=== PATIENT | male | born 1935 | race Caucasian/White ===

== ENCOUNTER 2016-08-16 18:33 | Observation (INO) | payer MEDICARE, BC ==
[~2016-08-16] VITALS: Ht 174 cm; Wt 111.0 kg
[~2016-08-16 18:33] MED LIST: ACET-2890 PO; AMLO10TA62 PO; ASPI-730 PO; CLOP75TA19 PO; FAMO20TA40 PO; FENO135C PO; FISH1CAP2 PO; FLUO-88 PO; GLIM2TAB3 PO; IRBE1TAB43 PO; ISOS30TA46 PO; METF500T4 PO; METO25TA41 PO; NITR12SP5 TL; TRAM50TA4 PO; VIT1CAPS31 PO; [UNRECOGNIZED DRUG - CODE] PO
--- OUTSIDE RECORDS SUMMARY | 2016-08-16 18:38 | XMS REPORT | Referral Summary ---
Author Author [facility] Organization [facility] Address Unknown Phone Unavailable Care Team Providers Care Informatics Developer Name Role Phone No PCP, States Primary Care Physician [phone] Encounter VC Date(s): 08/29/14 - 08/29/14 [facility] [address] [place] [address] SUKUMAR Mohr [id number] Discharge Diagnosis: BPH Discharge Disposition: 01-Home or Self Care Attending Physician: Jose Muller JR, MD Admitting Physician: Jose Muller JR, MD Vital Signs Most recent to 1 oldest [Reference Range]: Peripheral Pulse 65 bpm Rate [60-100 bpm] (08/29/14 2:10 PM) Blood Pressure 142/68 mmHg [90-140/60-90 mmHg] *HI* (08/29/14 2:10 PM) SpO2 95 % (08/29/14 2:10 PM) Problem List Condition Effective Dates Status Health Status Informant IC (interstitial Active cystitis)/history of(Confirmed) Depression/does take Active medicine(Confirmed) History of urethral Active stricture(Confirmed) Hearing Active loss(Confirmed) High Active cholesterol(Confirme d) Kidney Active disease(Confirmed) Kidney Active stones(Confirmed) Myocardial Active infarction(Confirmed ) Obesity(Confirmed) Active patient Leg pain(Confirmed) Active Scrotal Active pain/R/history of(Confirmed) Prostatism(Confirmed Active ) Urge Active incontinence(Confirm ed) Allergies, Adverse Reactions, Alerts Substance Reaction Severity Status Cephalexin Monohydrate Active ciprofloxacin Active Medications amLODIPine 0 Refill(s) Start Date: 02/17/14 Status: Ordered aspirin 0 Refill(s) Start Date: 02/17/14 Status: Ordered clopidogrel 0 Refill(s) Start Date: 02/17/14 Status: Ordered fenofibric acid 0 Refill(s) Start Date: 02/17/14 Status: Ordered Fish Oil 0 Refill(s) Start Date: 02/17/14 Status: Ordered FLUoxetine 0 Refill(s) Start Date: 02/17/14 Status: Ordered garlic 0 Refill(s) Start Date: 02/17/14 Status: Ordered irbesartan 0 Refill(s) Start Date: 02/17/14 Status: Ordered isosorbide mononitrate 0 Refill(s) Start Date: 02/17/14 Status: Ordered Livalo Daily, 0 Refill(s) Start Date: 02/17/14 Status: Ordered metoprolol tartrate suspension 0 Refill(s) Start Date: 02/17/14 Status: Ordered Miscellaneous DME DME Item oxygen, See Instructions, # 1 Each, 0 Refill(s), Supply Start Date: 02/17/14 Status: Ordered nitroglycerin 0 Refill(s) Start Date: 02/17/14 Status: Ordered orphenadrine 0 Refill(s) Start Date: 02/17/14 Status: Ordered Pepcid 0 Refill(s) Start Date: 02/17/14 Status: Ordered Results No data available for this section Immunizations No data available for this section Procedures Procedure Date Related Diagnosis Body Site Excision/mass right thigh1 05/10/09 Cystourethroscopy and urethral calibration 10/09/04 Cystourethroscopy nd urethral calibration 07/31/03 CABG - Coronary artery bypass graft Endarterectomy/Lt Extraction of cataract/left Extraction of cataract/right Fusion/cervical fusion x 3 Hernia repair/RIH with mesh Repairs/Carlo. femoral aneurysm Replacement stent Surgery/bypass2 Surgery/neck3 1path intramuscular mature lipoma 2vascular surgeon in [place] 3Dr. Juan C Social History Social History Type Response Smoking Status Former smoker Assessment and Plan Extracted from: Title: Ambulatory Patient Education Author: Jose Muller JR, MD Date : 08/29/14 Follow Up With: Where: When: Pt States No PCP [address] [place] [address] Business (1) Within 3 to 5 days Comments: Follow Up With: Where: When: Jose Muller [address] [place] [address] Drive; [place] [address] Business (1) In 1 year 08/30/2015 Comments: Extracted from: Title: Office Visit Note Author: Jose Muller JR, MD Date: 08/29/14 Assessment/Plan BPH Patient not taking any prostate medication at present. Recheck in my office in one year. PSA a week before next visit or to come and see me sooner if having troubles with urination. 15 minute face to face visit with 2/3 of the visit devoted to counseling. Ordered: Office Visit Level 3 Est 09435 Prostate Specific Antigen
--- OUTSIDE RECORDS SUMMARY | 2016-08-16 18:38 | XMS REPORT | Referral Summary ---
Author Author [facility] Organization [facility] Address Unknown Phone Unavailable Care Team Providers Care Hospital Personnel Director Name Role Phone No PCP, States Primary Care Physician [phone] Encounter VC Date(s): 08/29/14 - 08/29/14 [facility] [address] [place] [address] SUKUMAR Mohr [id number] Discharge Diagnosis: BPH Discharge Disposition: 01-Home or [...] 1path intramuscular mature lipoma 2vascular surgeon in [place] 3Dr. Juan C Social History Social History Type Response Smoking Status Former smoker Assessment and Plan Extracted from: Title: Ambulatory Patient Education Author: Jose Muller JR, MD Date : 08/29/14 Follow Up With: Where: When: Pt States No PCP [address] [place] [address] Business (1) Within 3 to 5 days Comments: Follow Up With: Where: When: Jose Muller [address] [place] [address] Drive; [place] [address] Business (1) In 1 year [...] counseling. Ordered: Office Visit Level 3 Est 02237 Prostate Specific Antigen
--- OUTSIDE RECORDS SUMMARY | 2016-08-16 18:38 | XMS REPORT | Continuity of Care Document ---
Author Author [facility] Organization [facility] Address Unknown Phone Unavailable Support Name Relationship Address Phone Lolita CROWDER MD Caregiver [address] [place] [id number] Unavailable NADINE GRANT MD Caregiver [address] [place] [address] Unavailable NADINE GRANT MD Caregiver [address] [place] [place] [address] Unavailable DELICIA EUBANKS Next Of Kin [address] [place] [address] Insurance Providers Guarantor Guy Sesay Address [address] [place] [address] Email DENIED/NO TO PT PORTAL Payer Medicare Policy Number [id number] Subscriber's Name Guy Sesay Relationship 18 Self Effective Date 00 Payer [facility] Policy Number [id number] Subscriber's Name Guy Sesay Relationship 18 Self Group Number [id number] Advance Directives Directive Response Recorded Date/Time Ordered Resuscitation Status Full Code 08/20/15 12:09pm Resuscitation Documents on File Yes 08/21/15 6:03am DPOA for Healthcare Only Yes 08/21/15 6:03am Problems Active Problems Medical Problem Onset Date Status Arthropathy of left hip Unknown Acute CAD (coronary artery disease) Unknown Chronic DMII (diabetes mellitus, type 2) Unknown Chronic Degenerative arthritis of hip Unknown Chronic Dementia Unknown Chronic Depression Unknown Chronic Emphysema/COPD Unknown Chronic Encephalopathy acute Unknown GERD (gastroesophageal reflux disease) Unknown Chronic Hyperlipemia Unknown Chronic Hypertension Unknown Chronic Hyponatremia Unknown Resolved KARLEY (obstructive sleep apnea) Unknown Chronic Obesity (BMI 30-39.9) Unknown Chronic Surgical Problem Onset Date Status Hx of CABG Unknown Resolved Medications Current Home Medications Medication Dose Units Route Directions Days Qty Instructions Start Date Acetaminophen (Tylenol) 325 Mg Tablet 650 Mg Oral Four Times Daily 100 Tablet 08/22/15 Amlodipine Besylate (Norvasc) 10 Mg Tablet 10 Mg Oral Bedtime 07/14 Aspirin 325 Mg Tablet 325 Mg Oral Daily 08/11/10 Clopidogrel Bisulfate (Plavix) 75 Mg Tablet 75 Mg Oral Daily 11/14 Enoxaparin Sodium 100 Mg/1 Ml Syringe 1 Dose Sub-Q Daily 3 Famotidine (Pepcid Ac) 20 Mg Tablet 20 Mg Oral Daily 08/11/10 Fenofibric Acid (Choline) (Trilipix) 135 Mg Capsule.dr 135 Mg Oral Bedtime 05/07/12 Fluoxetine Hcl (Prozac) 20 Mg Capsule 20 Mg Oral Daily 08/11/10 Garlic 1,000 Mg Capsule 1,000 Mg Oral Bedtime 05/10/09 Glimepiride 2 Mg Tablet 1 Tab Oral Give With Breakfast BEST TAKEN WITH BREAKFAST. 08/16/15 Irbesartan/Hydrochlorothiazide (Irbesartan-Hctz 300-12.5 Mg Tb) 1 Each Tablet 1 Tab Oral Daily 08/16/15 Isosorbide Mononitrate 30 Mg Tab.sr.24h 30 Mg Oral Twice A Day Metformin Hcl 500 Mg Tablet 2 Tab Oral Twice A Day 08/16/15 Metoprolol Tartrate 25 Mg Tablet 1 Tab Oral Twice A Day 05/10/09 Nitroglycerin (Nitrolingual) [address] [employer] 2 Sprays Transling As Needed 05/10/09 [place]-3 Fatty Acids/Fish Oil (Fish Oil 1,000 Mg Capsule) 1 Each Capsule 1,000 Mg Oral Twice A Day 08/16/15 Polyethylene Glycol 3350 (Healthylax) 17 Gm Powd.pack 17 Gm Oral Daily 30 Packet 08/22/15 Tramadol Hcl (Ultram) 50 Mg Tablet 50-100 Mg Oral Every 6 Hours as needed for Pain 60 Tablet 08/22/15 Vit C/[place] Ac/Lut/Copper/Znox (Preservision Lutein Softgel) 1 Each Capsule 1 Cap Oral Twice A Day 08/16/15 Past Home Medications Medication Directions Ordered Status Acetaminophen (Tylenol) 325 Mg Tablet, 0 Oral As Needed 05/10/09 Discontinued Aspirin (Aspirin Low Dose) 81 Mg Tablet.dr, 81 Mg Oral Daily 05/10/09 Discontinued Beta-Carotene(A) W-C & E/Min (Ocuvite Tablet) 1 Tab Tablet, 1 Tab Oral Daily 05/10/09 Discontinued Fenofibrate Nanocrystallized (Tricor) 145 Mg Tablet, 72.5 Mg Oral Daily 05/10 Discontinued Hydrochlorothiazide 25 Mg Tablet, 25 Mg Oral Daily 05/10/09 Discontinued Hydrocodone Bit/Acetaminophen (Hydrocodone-Apap 5/500 Tablet) 1 Tab Tablet, 1 Tab Oral As Needed 05/10/09 Discontinued Multivitamins (Multivitamin) 1 Tab Tablet, 1 Tab Oral Daily 05/10/09 Discontinued Nitroglycerin 0.4 Mg Tab.subl, 0.4 Mg Sublingual As Needed 05/09/09 Discontinued Olmesartan/Hydrochlorothiazide (Benicar Hct 20-12.5 Mg Tab) 1 Tab Tablet, 1 Tab Oral Daily 08/11/10 Discontinued Omeprazole Magnesium (Prilosec Otc) 20 Mg Tablet.dr, 20 Mg Oral Daily Discontinued Oxycodone Hcl/Acetaminophen (Oxycodone-Acetaminophen 10-325) 1 Each Tablet, 1 Tab Oral Every 8 Hours as needed for Pain 08/16/15 Discontinued Paroxetine Hcl (Paxil) 20 Mg Tablet, 20 Mg Oral Daily 05/10/09 Discontinued Propoxyphene/Acetaminophen (Darvocet-N 100 Tablet) 1 Tab Tablet, 1 Tab Oral As Needed 05/10/09 Discontinued Social History Social History Problem Response Recorded Date/Time Onset Date Status Chewing Tobacco Status No 08/21/2015 6:22am Not Applicable Not Applicable Hx Substance Use No 08/21/2015 6:22am Not Applicable Not Applicable Hx Alcohol Use Y 1 EVERY FEW MONTHS 08/21/2015 7:24am Not Applicable Not Applicable Has the pt used tobacco in the last 12 months No 08/21/2015 6:22am Not Applicable Not Applicable Tobacco Usage none 08/22/2015 11:24am Not Applicable Not Applicable Query Response Start Date Stop Date Smoking Status Former smoker Hospital Discharge Instructions Instructions: Care Instructions: Reason for Hospitalization: HIP REPLACEMENT I was in the hospital because (patient own words): TO HAVE LEFT HIP REPLACEMENT Discharge Diet: ADA Follow Up Appointments: DR GRANT 09-12-15 @ 2:00PM Pending Lab / Results: No Pending Lab Condition at time of discharge: Good Plan of Care Discharge Date 08/24/15 2:19pm Disposition 62 TO [facility] Instructions/Education Provided NM Ortho Postop Instructions Prescriptions See Medication Section Care Plan and Goals See Discharge Instructions Section Functional Status Query Response Date Recorded Mobility Status Ambulatory w/assist August 24, 2015 1:54pm Assistive Devices Standard Walker August 24, 2015 1:54pm Activity Limitations Pain August 24, 2015 1:54pm Feeding Ability Independent August 24, 2015 1:54pm Toileting Ability Independent August 24, 2015 1:54pm Grooming Ability Independent August 24, 2015 1:54pm Dressing Ability Independent August 24, 2015 1:54pm Driving Ability Dependent August 24, 2015 1:54pm Housework Ability Assist August 24, 2015 1:54pm Meal Preparation Ability Assist August 24, 2015 1:54pm Stair Climbing Ability Assist August 24, 2015 1:54pm Ability to complete ADL's impeded by Change in Cognition August 24, 2015 1:54pm Cognitive/Perceptual Impairments Impaired vision Impaired hearing Chronic confusion August 24, 2015 1:54pm Visual Assistive Devices Glasses With patient August 24, 2015 10:18am Hearing Assistive Devices Left hearing aid Right hearing aid With patient August 24, 2015 10:18am Allergies, Adverse Reactions, Alerts Allergen Type Severity Reaction Status Last Updated Tetanus Vaccines & Toxoid Allergy Unknown Active 09/09/12 Iodine Allergy Unknown Active 09/09/12 Cephalexin Allergy Unknown Active 09/09/12 Ciprofloxacin Allergy Unknown Active 09/09/12 Esomeprazole Allergy Unknown Active 08/16/15 Immunizations Query Response on File Recorded Date/Time Hx Influenza Vaccination Y NOVEMBER 2014 08/21/15 6:22am Hx Pneumococcal Vaccination Y 2011? 08/21/15 6:22am Hx Influenza Vaccination Y NOVEMBER 2014 08/21/15 6:22am Hx Tetanus Diptheria N 1 YEAR AGO 09/09/12 3:11pm Influenza Vaccine Hx fall 201408/21/15 2:10pm Vital Signs Acute Vital Signs Vital Response Date/Time Temperature (Fahrenheit) 98.7 deg F (96.8 - 99.1) 08/24/2015 11:48am Temperature (Calculated Celsius) 37.86312 degrees C (36.0 - 37.3) 08/24/2015 11:48am Temperature Source Temporal 08/21/2015 3:10pm Pulse Rate (adult) 84 bpm (60 - 100) 08/24/2015 11:48am Respiratory Rate 15 breaths/min (10 - 20) 08/24/2015 11:48am O2 Sat by Pulse Oximetry 94 % (90 - 100) 08/24/2015 11:48am Oxygen Delivery Method Room Air 08/23/2015 4:51pm Oxygen Delivery Method Room Air 08/24/2015 11:48am Oxygen Flow Rate 1.00 L/min 08/24/2015 10:35am Blood Pressure 131/65 mm Hg 08/24/2015 11:48am Blood Pressure Source Automatic Cuff 08/24/2015 11:48am Height (Feet) 5 feet 08/24/2015 8:50am Height (Inches) 7.00 inches 08/24/2015 8:50am Weight (Kilograms) 112.900 kg 08/24/2015 9:08am Body Mass Index (BMI) 38.2 08/21/2015 6:01am Results Laboratory Results Test Name Result Units Flags Reference Collection Date/Time Result Date/ Time Comments White Blood Count 9.1 T/MM3 4.5-11.0 08/24/2015 4:08/24/2015 4: 44am Red Blood Count 3.48 M/MM3 L 4.50-5.90 08/24/2015 4:08/24/2015 4: 44am Hemoglobin 9.9 GM/DL L 13.5-17.5 08/24/2015 4:08/24/2015 4:44am Hematocrit 31.9 % L 41-53 08/24/2015 4:08/24/2015 4:44am Mean Corpuscular Volume 91.7 UM3 80-100 08/24/2015 4:08/24/2015 4: 44am Mean Corpuscular Hemoglobin 28.4 UUG 26-34 08/24/2015 4:2015 4:44am Mean Corpuscular Hemoglobin Concent 31.0 GM/DL 31-37 08/24/2015 4:08/24/2015 4:44am RDW Standard Deviation 46.5 FL 36.9-50.2 08/24/2015 4:08/24/2015 4 :44am Platelet Count 225 T/MM3 130-400 08/24/2015 4:08/24/2015 4:44am Mean Platelet Volume 10.3 UM3 9.4-12.4 08/24/2015 4:08/24/2015 4: 44am Neutrophils (%) (Auto) 63.9 % 33-66 08/24/2015 4:08/24/2015 4: 44am Lymphocytes (%) (Auto) 20.0 % L 23-45 08/24/2015 4:08/24/2015 4: 44am Monocytes (%) (Auto) 12.9 % H 0-9.0 08/24/2015 4:08/24/2015 4:44am Eosinophils (%) (Auto) 2.7 % 0-4 08/24/2015 4:08/24/2015 4:44am Basophils (%) (Auto) 0.2 % 0-2 08/24/2015 4:08/24/2015 4:44am Immature Granulocyte % (Auto) 0.3 % 0.0-0.5 08/24/2015 4:2015 4:44am Absolute Neutrophils (auto) 5.8 T/MM3 1.8-7.7 08/24/2015 4:2015 4:44am Absolute Lymphocytes (auto) 1.8 T/MM3 1-4.8 08/24/2015 4:2015 4:44am Absolute Monocytes (auto) 1.2 T/MM3 H 0-0.8 08/24/2015 4:2015 4:44am Absolute Eosinophils (auto) 0.3 T/MM3 0-0.5 08/24/2015 4:2015 4:44am Absolute Basophils (auto) 0.0 T/MM3 0-0.2 08/24/2015 4:08/24/2015 4:44am Absolute Immature Granulocyte (auto 0.03 T/MM3 0.00-0.03 08/24/2015 4: 08/24/2015 4:44am Platelet Function P2Y12 React Units 255 PRU 08/21/2015 6:10am 2015 6:54am PRU reference range for non-treated is 194-418. Post Drug Results: Lower PRU levels are associated with antiplatelet effect. PRU results <194 are highly indicative of a P2Y12 inhibitor effect. PRU of >237 corresponds to previously recommended pre-surgical level of <20% inhibition. NOTE: Test not reliable with NSAID use or low platelet counts. Not for use with inherited platelet disorders. Icterus Index < 2 0-7 08/24/2015 4:08/24/2015 4:59am Chemistry Specimen Hemolysis < 15 0-25 08/24/2015 4:08/24/2015 4 :59am 0-25: Specimen Exhibited No Hemolysis. Turbidity < 20 0-20 08/24/2015 4:08/24/2015 4:59am Sodium Level 137 MEQ/L 134-144 08/24/2015 4:08/24/2015 4:59am Potassium Level 4.5 MEQ/L 3.6-5 08/24/2015 4:08/24/2015 4:59am Chloride Level 99 MEQ/L 98-107 08/24/2015 4:08/24/2015 4:59am Carbon Dioxide Level 30 MEQ/L 22-30 08/24/2015 4:08/24/2015 4: 59am Anion Gap 8 MEQ/L 5-15 08/24/2015 4:08/24/2015 4:59am Blood Urea Nitrogen 27.0 MG/DL H 9-08/24/2015 4:08/24/2015 4: 59am Creatinine 1.0 MG/DL 0.8-1.5 08/24/2015 4:08/24/2015 4:59am BUN/Creatinine Ratio 27 RATIO H 6-08/24/2015 4:08/24/2015 4: 59am Glomerular Filtration Rate Calc 72 08/24/2015 4:08/24/2015 4: 59am Glucose Level 104 MG/DL 75-110 08/24/2015 4:08/24/2015 4:59am Calculated Osmolality 269 MOSM/KG 261-280 08/24/2015 4:08/24/2015 4:59am Calcium Level 9.3 MG/DL 8.4-10.2 08/24/2015 4:08/24/2015 4:59am Troponin I < 0.012 ng/ml 0-0.12 08/23/2015 9:25pm 08/23/2015 9:56pm Troponin values with a difference of 55% increase from orginal troponin value represent a true biological DELTA value. (%increase Calc=Orginal Troponin value, divided by subsequent Troponin value, multiplied by 100) Hemoglobin A1c 6.5 % 6.1-7.9 08/23/2015 4:39am 08/23/2015 10:18am < 6.0 NON-DIABETIC RANGE 6.1-7.9 [facility] TARGET RANGE >8.0 ACTION SUGGESTED Glucometer 110 mg/dL 75-110 08/24/2015 2:09pm 08/24/2015 2:15pm Name: GUY SESAY Unit #: [id number] : 1935 Sex: M Admit Date: 08/21/15 Loc / Svc: SRG Discharge Date: DIAGNOSTIC IMAGING REPORT [id number]AS[facility]: AP PELVIS XRAY IN PACU WITH CROSS TABLE ALTERAL OF OPERATIVE HIP PROCEDURE: PELVIS W/1 VIEW LT HIP: Encounter: Initial Comparison: None Findings: Postoperative changes of left total hip replacement are seen. There is expected postoperative subcutaneous gas. No evidence of hardware failure or acute fracture. No retained radiopaque surgical instruments or sponges seen. Existing right total hip prosthesis appears intact. Impression: New left total hip prosthesis without evidence of immediate complication. . Procedures Procedure Status Date Provider(s) Total replacement of left hip joint Completed 08/21/15 NADINE GRANT MD Encounters Encounter Location Arrival/Admit Date Discharge/Depart Date Attending Provider Discharged Inpatient [facility] 08/21/15 5:46am 08/24/15 2:19pm NADINE GRANT MD Registered Recurring [facility] 07/31/15 3:16pm Lolita CROWDER MD
--- OUTSIDE RECORDS SUMMARY | 2016-08-16 18:38 | XMS REPORT | Continuity of Care Document ---
Author Author [facility] Organization [facility] Address Unknown Phone Unavailable Support Name Relationship Address Phone Lolita BOLDEN MD Caregiver [address] [place] [address] Unavailable USMAN CALLAHAN MD Caregiver [address] [place] [address] Unavailable USMAN CALLAHAN MD Caregiver [address] [place] [address] Unavailable DELICIA EUBANKS Next Of Kin [address] [place] [address] Insurance Providers Guarantor Guy Sesay Address [address] [place] [address] Email DENIED/NO TO PT PORTAL Payer Medicare Policy Number [id number] Subscriber's Name Guy Sesay Relationship 18 Self Effective Date 00 Payer [facility] Policy Number [id number] Subscriber's Name Guy Sesay Relationship 18 Self Group Number [id number] Advance Directives Directive Response Recorded Date/Time Ordered Resuscitation Status Full Code 08/24/15 3:03pm Resuscitation Documents on File Yes 08/24/15 3:14pm DPOA for Healthcare Only Y Jailyn, spouse 08/24/15 3:14pm Problems Active Problems Medical Problem Onset Date Status Anemia Unknown Acute Arthropathy of left hip Unknown Acute CAD (coronary artery disease) Unknown Chronic Chronic back pain Unknown Chronic DMII (diabetes mellitus, type 2) Unknown Chronic Degenerative arthritis of hip Unknown Chronic Delirium due to multiple etiologies Unknown Acute Dementia Unknown Chronic Depression Unknown Chronic Emphysema/COPD Unknown Chronic Encephalopathy acute Unknown Acute GERD (gastroesophageal reflux disease) Unknown Chronic Hyperlipemia Unknown Chronic Hypertension Unknown Chronic Hyponatremia Unknown Resolved KARLEY (obstructive sleep apnea) Unknown Chronic Obesity (BMI 30-39.9) Unknown Chronic Physical debility Unknown Acute Surgical Problem Onset Date Status Hx of CABG Unknown Resolved Status post hip hemiarthroplasty Unknown Acute Medications Current Home Medications Medication Dose Units Route Directions Days Qty Instructions Start Date Acetaminophen (Tylenol) 325 Mg Tablet 650 Mg Oral Four Times Daily as needed for Pain 15 Days 120 Tablet 08/29/15 Amlodipine Besylate (Norvasc) 10 Mg Tablet 10 Mg Oral Bedtime 07/14 Aspirin 325 Mg Tablet 325 Mg Oral Daily 08/11/10 Clopidogrel Bisulfate (Plavix) 75 Mg Tablet 75 Mg Oral Daily 11/14 Famotidine (Pepcid Ac) 20 Mg Tablet 20 Mg Oral Daily 08/11/10 Fenofibric Acid (Choline) (Trilipix) 135 Mg Capsule.dr 135 Mg Oral Bedtime 05/07/12 Fluoxetine Hcl (Prozac) 20 Mg Capsule 20 Mg Oral Daily 08/11/10 Garlic 1,000 Mg Capsule 1,000 Mg Oral Bedtime 05/10/09 Glimepiride 2 Mg Tablet 1 Tab Oral Give With Breakfast BEST TAKEN WITH BREAKFAST. 08/16/15 Haloperidol 0.5 Mg Tablet 0.5 Mg Oral Three Times A Day as needed for Agitation 30 Days 90 Tablet 08/29/15 Irbesartan/Hydrochlorothiazide (Irbesartan-Hctz 300-12.5 Mg Tb) 1 Each Tablet 1 Tab Oral Daily 08/16/15 Isosorbide Mononitrate 30 Mg Tab.sr.24h 30 Mg Oral Twice A Day Metformin Hcl 500 Mg Tablet 1 Tab Oral Twice A Day 30 Days 60 Metoprolol Tartrate 25 Mg Tablet 1 Tab Oral Twice A Day 05/10/09 Nitroglycerin (Nitrolingual) 12 Gm [place] 2 Sprays Transling As Needed 05/10/09 [place]-3 Fatty Acids/Fish Oil (Fish Oil 1,000 Mg Capsule) 1 Each Capsule 1,000 Mg Oral Twice A Day 08/16/15 Polyethylene Glycol 3350 (Healthylax) 17 Gm Powd.pack 17 Gm Oral Daily 30 Packet 08/22/15 Tramadol Hcl (Ultram) 50 Mg Tablet 50-100 Mg Oral Every 6 Hours as needed for Pain 60 Tablet 08/29/15 Vit C/[place] Ac/Lut/Copper/Znox (Preservision Lutein Softgel) 1 Each Capsule 1 Cap Oral Twice A Day 08/16/15 Past Home Medications Medication Directions Ordered Status Acetaminophen (Tylenol) 325 Mg Tablet, 650 Mg Oral Four Times Daily 08/22/15 Discontinued Acetaminophen (Tylenol) 325 Mg Tablet, 0 Oral As Needed 05/10/09 Discontinued Aspirin (Aspirin Low Dose) 81 Mg Tablet., 81 Mg Oral Daily 05/10/09 Discontinued Beta-Carotene(A) W-C & E/Min (Ocuvite Tablet) 1 Tab Tablet, 1 Tab Oral Daily 05/10/09 Discontinued Enoxaparin Sodium 100 Mg/1 Ml Syringe, 1 Dose Sub-Q Daily 08/20/15 Discontinued Fenofibrate Nanocrystallized (Tricor) 145 Mg Tablet, 72.5 Mg Oral Daily 05/10 Discontinued Hydrochlorothiazide 25 Mg Tablet, 25 Mg Oral Daily 05/10/09 Discontinued Hydrocodone Bit/Acetaminophen (Hydrocodone-Apap 5/500 Tablet) 1 Tab Tablet, 1 Tab Oral As Needed 05/10/09 Discontinued Metformin Hcl 500 Mg Tablet, 2 Tab Oral Twice A Day 08/16/15 Discontinued Multivitamins (Multivitamin) 1 Tab Tablet, 1 Tab Oral Daily 05/10/09 Discontinued Nitroglycerin 0.4 Mg Tab.subl, 0.4 Mg Sublingual As Needed 05/09/09 Discontinued Olmesartan/Hydrochlorothiazide (Benicar Hct 20-12.5 Mg Tab) 1 Tab Tablet, 1 Tab Oral Daily 08/11/10 Discontinued Omeprazole Magnesium (Prilosec Otc) 20 Mg Tablet., 20 Mg Oral Daily Discontinued Oxycodone Hcl/Acetaminophen (Oxycodone-Acetaminophen 10-325) 1 Each Tablet, 1 Tab Oral Every 8 Hours as needed for Pain 08/16/15 Discontinued Paroxetine Hcl (Paxil) 20 Mg Tablet, 20 Mg Oral Daily 05/10/09 Discontinued Propoxyphene/Acetaminophen (Darvocet-N 100 Tablet) 1 Tab Tablet, 1 Tab Oral As Needed 05/10/09 Discontinued Tramadol Hcl (Ultram) 50 Mg Tablet, 50-100 Mg Oral Every 6 Hours as needed for Pain 08/22/15 Discontinued Social History Social History Problem Response Recorded Date/Time Onset Date Status Hx Substance Use No 08/21/2015 6:22am Not Applicable Not Applicable Hx Alcohol Use Y 1 EVERY FEW MONTHS 08/21/2015 7:24am Not Applicable Not Applicable Has the pt used tobacco in the last 12 months No 08/24/2015 3:21pm Not Applicable Not Applicable Tobacco Usage none 08/25/2015 1:23pm Not Applicable Not Applicable Query Response Start Date Stop Date Smoking Status Former smoker Hospital Discharge Instructions Instructions: Care Instructions: Reason for Hospitalization: left [facility] I was in the hospital because (patient own words): pt. doesn't know - confused Discharge Diet: diabetic diet Discharge Activity: hip precautions given by PT, walker with assistance PT/OT eval and treat (outpatient, see hand written script) Follow Up Appointments: Dr. Rosaura Bolden on 09/06/15 at 10:00 am for Hosp. follow-up. [facility] [address] [place], [place] . Dr. Lay Rodas on 09/12/15 at 2:00 pm for follow-up. [address] [place] . OT/PT on 09/04/15 at 8:20 am. Advanced Physical Theraph[facility] [place] [phone]. Pending Lab / Results: No Pending Lab Wound/Incision Care: Cover bandage while in shower. Call Dr. Rodas's office if bandage gets wet. Notify Physician If: Fever, increased pain, fall or other concerns. Condition at time of discharge: Fair Plan of Care Discharge Date 08/29/15 3:35pm Disposition 01 DISCHARGED HOME, SELF-CARE Instructions/Education Provided DI for Diabetes Type 2 Prescriptions See Medication Section Additional Instructions/Education Follow-up with diabetic education as previously established. Care Plan and Goals See Discharge Instructions Section Functional Status Query Response Date Recorded Mobility Status Ambulatory w/assist August 27, 2015 3:44pm Assistive Devices Front Wheeled Walker August 27, 2015 3:44pm Activity Limitations Pain August 27, 2015 3:44pm Feeding Ability Independent August 27, 2015 3:44pm Toileting Ability Assist August 27, 2015 3:44pm Grooming Ability Assist August 27, 2015 3:44pm Dressing Ability Assist August 27, 2015 3:44pm Driving Ability Dependent August 27, 2015 3:44pm Housework Ability Dependent August 27, 2015 3:44pm Meal Preparation Ability Dependent August 27, 2015 3:44pm Stair Climbing Ability Assist August 27, 2015 3:44pm Ability to complete ADL's impeded by Impaired Mobility Change in Cognition August 27, 2015 3:44pm Cognitive/Perceptual Impairments Impaired vision Impaired hearing Chronic confusion August 27, 2015 3:44pm Visual Assistive Devices Glasses With patient August 27, 2015 3:44pm Hearing Assistive Devices Left hearing aid Right hearing aid With patient August 27, 2015 3:44pm Preferred Method of Learning Demonstration Listening August 27, 2015 3:44pm Allergies, Adverse Reactions, Alerts Allergen Type Severity Reaction Status Last Updated Tetanus Vaccines & Toxoid Allergy Unknown Active 09/09/12 Iodine Allergy Unknown Active 09/09/12 Cephalexin Allergy Unknown Active 09/09/12 Ciprofloxacin Allergy Unknown Active 09/09/12 Esomeprazole Allergy Unknown Active 08/16/15 Immunizations Query Response on File Recorded Date/Time Hx Influenza Vaccination Y NOVEMBER 2014 08/24/15 3:21pm Hx Pneumococcal Vaccination Y 2011? 08/24/15 3:21pm Hx Influenza Vaccination Y NOVEMBER 2014 08/24/15 3:21pm Hx Tetanus Diptheria N 1 YEAR AGO 09/09/12 3:11pm Influenza Vaccine Hx Nov 2014 08/24/15 3:24pm Vital Signs Acute Vital Signs Vital Response Date/Time Temperature (Fahrenheit) 97.6 deg F (96.8 - 99.1) 08/29/2015 6:36am Temperature (Calculated Celsius) 36.52002 degrees C (36.0 - 37.3) 08/29/2015 6:36am Temperature Source Temporal 08/21/2015 3:10pm Pulse Rate (adult) 77 bpm (60 - 100) 08/29/2015 6:36am Respiratory Rate 18 breaths/min (10 - 20) 08/29/2015 6:36am O2 Sat by Pulse Oximetry 95 % (90 - 100) 08/29/2015 6:36am Oxygen Delivery Method Room Air 08/28/2015 8:54pm Oxygen Delivery Method Room Air 08/29/2015 8:00am Oxygen Flow Rate 2.00 L/min 08/28/2015 6:32am Blood Pressure 127/65 mm Hg 08/29/2015 6:36am Blood Pressure Source Automatic Cuff 08/29/2015 6:36am Height (Feet) 5 feet 08/28/2015 4:10pm Height (Inches) 8.50 inches 08/28/2015 4:10pm Weight (Kilograms) 112.000 kg 08/25/2015 3:27am Body Mass Index (BMI) 38.2 08/21/2015 6:01am Results Laboratory Results Test Name Result Units Flags Reference Collection Date/Time Result Date/ Time Comments Platelet Function P2Y12 React Units 255 PRU [...] Not for use with inherited platelet disorders. Troponin I < 0.012 ng/ml 0-0.12 08/23/2015 9:25pm 08/23/2015 9:56pm Troponin values with a difference of 55% increase from orginal troponin value represent a true biological DELTA value. (%increase Calc=Orginal Troponin value, divided by subsequent Troponin value, multiplied by 100) Hemoglobin A1c 6.5 % 6.1-7.9 08/23/2015 4:39am 08/23/2015 10:18am < 6.0 NON-DIABETIC RANGE 6.1-7.9 [facility] TARGET RANGE >8.0 ACTION SUGGESTED White Blood Count 8.1 T/MM3 4.5-11.0 08/25/2015 4:49am 08/25/2015 5: 08am Red Blood Count 3.41 M/MM3 L 4.50-5.90 08/25/2015 4:49am 08/25/2015 5: 08am Hemoglobin 9.7 GM/DL L 13.5-17.5 08/25/2015 4:49am 08/25/2015 5:08am Hematocrit 31.1 % L 41-53 08/25/2015 4:49am 08/25/2015 5:08am Mean Corpuscular Volume 91.2 UM3 80-100 08/25/2015 4:49am 08/25/2015 5: 08am Mean Corpuscular Hemoglobin 28.4 UUG 26-34 08/25/2015 4:49am 2015 5:08am Mean Corpuscular Hemoglobin Concent 31.2 GM/DL 31-37 08/25/2015 4:49am 08/25/2015 5:08am RDW Standard Deviation 46.0 FL 36.9-50.2 08/25/2015 4:4908/25/2015 5 :08am Platelet Count 274 T/MM3 130-400 08/25/2015 4:49am 08/25/2015 5:08am Mean Platelet Volume 10.2 UM3 9.4-12.4 08/25/2015 4:49am 08/25/2015 5: 08am Neutrophils (%) (Auto) 63.5 % 33-66 08/25/2015 4:49am 08/25/2015 5: 08am Lymphocytes (%) (Auto) 18.4 % L 23-45 08/25/2015 4:49am 08/25/2015 5: 08am Monocytes (%) (Auto) 13.4 % H 0-9.0 08/25/2015 4:4908/25/2015 5:08am Eosinophils (%) (Auto) 4.1 % H 0-4 08/25/2015 4:49am 08/25/2015 5:08am Basophils (%) (Auto) 0.2 % 0-2 08/25/2015 4:4908/25/2015 5:08am Immature Granulocyte % (Auto) 0.4 % 0.0-0.5 08/25/2015 4:492015 5:08am Absolute Neutrophils (auto) 5.2 T/MM3 1.8-7.7 08/25/2015 4:49am 2015 5:08am Absolute Lymphocytes (auto) 1.5 T/MM3 1-4.8 08/25/2015 4:49am 2015 5:08am Absolute Monocytes (auto) 1.1 T/MM3 H 0-0.8 08/25/2015 4:492015 5:08am Absolute Eosinophils (auto) 0.3 T/MM3 0-0.5 08/25/2015 4:49am 2015 5:08am Absolute Basophils (auto) 0.0 T/MM3 0-0.2 08/25/2015 4:49am 08/25/2015 5:08am Absolute Immature Granulocyte (auto 0.03 T/MM3 0.00-0.03 08/25/2015 4: 49am 08/25/2015 5:08am Icterus Index < 2 0-7 08/26/2015 7:57am 08/26/2015 8:13am Chemistry Specimen Hemolysis < 15 0-25 08/26/2015 7:57am 08/26/2015 8 :13am 0-25: Specimen Exhibited No Hemolysis. Turbidity < 20 0-20 08/26/2015 7:57am 08/26/2015 8:13am Sodium Level 137 MEQ/L 134-144 08/26/2015 7:57am 08/26/2015 8:13am Potassium Level 4.6 MEQ/L 3.6-5 08/26/2015 7:57am 08/26/2015 8:13am Chloride Level 102 MEQ/L 98-107 08/26/2015 7:57am 08/26/2015 8:13am Carbon Dioxide Level 28 MEQ/L 22-30 08/26/2015 7:57am 08/26/2015 8: 13am Anion Gap 7 MEQ/L 5-15 08/26/2015 7:57am 08/26/2015 8:13am Blood Urea Nitrogen 28.0 MG/DL H 9-08/26/2015 7:57am 08/26/2015 8: 13am Creatinine 0.9 MG/DL 0.8-1.5 08/26/2015 7:57am 08/26/2015 8:13am BUN/Creatinine Ratio 31 RATIO H 6-08/26/2015 7:57am 08/26/2015 8: 13am Glomerular Filtration Rate Calc 81 08/26/2015 7:57am 08/26/2015 8: 13am Glucose Level 86 MG/DL 75-110 08/26/2015 7:57am 08/26/2015 8:13am Calculated Osmolality 269 MOSM/KG 261-280 08/26/2015 7:57am 08/26/2015 8:13am Calcium Level 9.0 MG/DL 8.4-10.2 08/26/2015 7:57am 08/26/2015 8:13am Magnesium Level 2.2 MG/DL 1.6-2.3 08/26/2015 7:57am 08/26/2015 8:13am Glucometer 99 mg/dL 75-110 08/29/2015 1:52pm 08/29/2015 2:50pm Procedures Procedure Status Date Provider(s) TOTAL HIP ARTHROPLASTY Completed 08/21/15 JUANITA,NADINE S MD LUAN,NEREYDA L PA REPLACE L HIP JT W CERAMIC ON POLY, UNCEMENT, OPEN Completed 08/21/15 NADINE RODAS MD Encounters Encounter Location Arrival/Admit Date Discharge/Depart Date Attending Provider Discharged Inpatient [facility] 08/24/15 2:25pm 08/29/15 3:35pm USMAN CALLAHAN MD Discharged Inpatient [facility] 08/21/15 5:46am 08/24/15 2:19pm NADINE RODAS MD Registered Recurring [facility] 07/31/15 3:16pm Lolita BOLDEN MD
--- OUTSIDE RECORDS SUMMARY | 2016-08-16 18:38 | XMS REPORT | Referral Summary ---
Author Author [facility] Organization [facility] Address Unknown Phone Unavailable Care Team Providers Care Can Carrier Name Role Phone No PCP, States Primary Care Physician [phone] Encounter VC Date(s): 08/29/14 - 08/29/14 [facility] [address] [place] [address] SUKUMAR Mohr [id number] Discharge Diagnosis: BPH Discharge [...] 1path intramuscular mature lipoma 2vascular surgeon in [place] 3Dr. Juan C Social History Social History Type Response Smoking Status Former smoker Assessment and Plan Extracted from: Title: Ambulatory Patient Education Author: Jose Muller JR, MD Date : 08/29/14 Follow Up With: Where: When: Pt States No PCP [address] [place] [address] Business (1) Within 3 to 5 days Comments: Follow Up With: Where: When: Jose Muller [address] [place] [address] Drive; [place] [address] Business (1) In 1 year [...] counseling. Ordered: Office Visit Level 3 Est 40124 Prostate Specific Antigen
--- OUTSIDE RECORDS SUMMARY | 2016-08-16 18:38 | XMS REPORT | Referral Summary ---
Author Author [facility] Organization [facility] Address Unknown Phone Unavailable Care Team Providers Care Convention Manager Name Role Phone No PCP, States Primary Care Physician [phone] Encounter VC Date(s): 08/29/14 - 08/29/14 [facility] [address] [place] [address] SUKUMAR Mohr [id number] Discharge Diagnosis: BPH Discharge [...] 1path intramuscular mature lipoma 2vascular surgeon in [place] 3Dr. Juan C Social History Social History Type Response Smoking Status Former smoker Assessment and Plan Extracted from: Title: Ambulatory Patient Education Author: Jose Muller JR, MD Date : 08/29/14 Follow Up With: Where: When: Pt States No PCP [address] [place] [address] Business (1) Within 3 to 5 days Comments: Follow Up With: Where: When: Jose Muller [address] [place] [address] Drive; [place] [address] Business (1) In 1 year [...] counseling. Ordered: Office Visit Level 3 Est [id number] Prostate Specific Antigen
--- OUTSIDE RECORDS SUMMARY | 2016-08-16 18:38 | XMS REPORT | Referral Summary ---
Author Author [facility] Organization [facility] Address Unknown Phone Unavailable Care Team Providers Care Rn Family Name Role Phone No PCP, States Primary Care Physician [phone] Encounter VC Date(s): 08/29/14 - 08/29/14 [facility] [address] [place] [address] SUKUMAR Mohr [id number] Discharge Diagnosis: BPH Discharge Disposition: 01-Home [...] 1path intramuscular mature lipoma 2vascular surgeon in [place] 3Dr. Juan C Social History Social History Type Response Smoking Status Former smoker Assessment and Plan Extracted from: Title: Ambulatory Patient Education Author: Jose Muller JR, MD Date : 08/29/14 Follow Up With: Where: When: Pt States No PCP [address] [place] [address] Business (1) Within 3 to 5 days Comments: Follow Up With: Where: When: Jose Muller [address] [place] [address] Drive; [place] [address] Business (1) In 1 year [...] counseling. Ordered: Office Visit Level 3 Est 91938 Prostate Specific Antigen
--- OUTSIDE RECORDS SUMMARY | 2016-08-16 18:38 | XMS REPORT | Referral Summary ---
Author Author [facility] Organization [facility] Address Unknown Phone Unavailable Care Team Providers Care County Treasurer Name Role Phone No PCP, States Primary Care Physician [phone] Encounter VC Date(s): 08/29/14 - 08/29/14 [facility] [address] [place] [address] SUKUMAR Mohr [id number] Discharge Diagnosis: BPH Discharge Disposition: [...] 1path intramuscular mature lipoma 2vascular surgeon in [place] 3Dr. Juan C Social History Social History Type Response Smoking Status Former smoker Assessment and Plan Extracted from: Title: Ambulatory Patient Education Author: Jose Muller JR, MD Date : 08/29/14 Follow Up With: Where: When: Pt States No PCP [address] [place] [address] Business (1) Within 3 to 5 days Comments: Follow Up With: Where: When: Jose Muller [address] [place] [address] Drive; [place] [address] Business (1) In 1 year [...] counseling. Ordered: Office Visit Level 3 Est 90507 Prostate Specific Antigen
--- OUTSIDE RECORDS SUMMARY | 2016-08-16 18:38 | XMS REPORT | Referral Summary ---
Author Author [facility] Organization [facility] Address Unknown Phone Unavailable Care Team Providers Care Turbine Technician Name Role Phone No PCP, States Primary Care Physician [phone] Encounter VC Date(s): 08/29/14 - 08/29/14 [facility] [address] [place] [address] SUKUMAR Mohr [id number] Discharge Diagnosis: BPH Discharge Disposition: 01-Home or [...] 1path intramuscular mature lipoma 2vascular surgeon in [place] 3Dr. Juan C Social History Social History Type Response Smoking Status Former smoker Assessment and Plan Extracted from: Title: Ambulatory Patient Education Author: Jose Muller JR, MD Date : 08/29/14 Follow Up With: Where: When: Pt States No PCP [address] [place] [address] Business (1) Within 3 to 5 days Comments: Follow Up With: Where: When: Jose Muller [address] [place] [address] Drive; [place] [address] Business (1) In 1 year [...] counseling. Ordered: Office Visit Level 3 Est 37760 Prostate Specific Antigen
--- OUTSIDE RECORDS SUMMARY | 2016-08-16 18:38 | XMS REPORT | Continuity of Care Document ---
Author Author [facility] Organization [facility] Address Unknown Phone Unavailable Allergies Active Description Code Type Severity Reaction Onset Reported/Identified Relationship to Patient Clinical Status Yes Cephalexin Monohydrate Cephalexin Monohydrate Drug Allergy Severe RASH 01/23/2014 Yes ciprofloxacin ciprofloxacin Drug Allergy Severe RASH 01/23/2014 Yes Cephalexin Monohydrate NKMA N/A N/A 02/17/2014 Yes ciprofloxacin NKMA N/A N/A 02/17/2014 Yes Cephalexin Monohydrate Cephalexin Monohydrate Drug Allergy Severe RASH,HIVES 05/28/2015 Yes ciprofloxacin ciprofloxacin Drug Allergy Severe RASH,HIVES 05/28/2015 Yes iodine iodine Drug Allergy Severe RED RASH, SWELLING , DIFFICULT BREATHING 05/28/2015 Yes morphine morphine Drug Allergy Severe CONFUSION 05/28/2015 Medications Problems Procedures Results Encounters ACCT No. Visit Date/Time Discharge Status Pt. Type Provider Facility Loc./Unit Complaint [id number] 09/25/2015 13:13:00 2015 23:59:00 DIS Outpatient Jose Muller [facility] 1 year recheck
--- OUTSIDE RECORDS SUMMARY | 2016-08-16 18:38 | XMS REPORT | Referral Summary ---
Author Author [facility] Organization [facility] Address Unknown Phone Unavailable Care Team Providers Care Library Specialist Name Role Phone No PCP, States Primary Care Physician [phone] Encounter VC Date(s): 08/29/14 - 08/29/14 [facility] [address] [place] [address] SUKUMAR Mohr [id number] Discharge Diagnosis: BPH Discharge Disposition: [...] 1path intramuscular mature lipoma 2vascular surgeon in [place] 3Dr. Juan C Social History Social History Type Response Smoking Status Former smoker Assessment and Plan Extracted from: Title: Ambulatory Patient Education Author: Jose Muller JR, MD Date : 08/29/14 Follow Up With: Where: When: Pt States No PCP [address] [place] [address] Business (1) Within 3 to 5 days Comments: Follow Up With: Where: When: Jose Muller [address] [place] [address] Drive; [place] [address] Business (1) In 1 year [...] counseling. Ordered: Office Visit Level 3 Est [id number] Prostate Specific Antigen
--- OUTSIDE RECORDS SUMMARY | 2016-08-16 18:39 | XMS REPORT | Continuity of Care Document ---
Author Author [facility] Organization [facility] Address Unknown Phone Unavailable Support Name Relationship Address Phone Lolita CROWDER MD Caregiver [address] [place] [address] Unavailable NADINE GRANT MD Caregiver [address] [place] [address] Unavailable HARPAL BOX MD Caregiver [address] [place] [phone] Unavailable DELICIA EUBANKS Next Of Kin [address] [place] [address] Insurance Providers Guarantor Guy Sesay Address [address] [place] [address] Email DENIED/NO TO PT PORTAL Payer Medicare Policy Number [id number] Subscriber's Name Guy Sesay Relationship 18 Self Effective Date 00 Payer [facility] Policy Number [id number] Subscriber's Name Guy Sesay Relationship 18 Self Group Number [id number] Chief Complaint and Reason for Visit Chief Complaint Lower Extremity Pain Reason for Visit [id number] Problems Active Problems Medical Problem Onset Date [...] Date Status Hx of CABG Unknown Resolved S/P total hip arthroplasty Unknown Acute Status post hip hemiarthroplasty Unknown Acute Past Problems Medical Problem Onset Date Hip pain, left Unknown Medications Current Home Medications Medication Dose Units Route Directions Days Qty Instructions Start Date Acetaminophen 650 Mg Tablet.er 650 Mg Oral As Needed as needed for Pain 09/23/15 Amlodipine Besylate (Norvasc) 10 Mg Tablet 10 [...] Oral Bedtime 05/10/09 Glimepiride 2 Mg Tablet 2 Mg Oral Give With Breakfast BEST TAKEN WITH BREAKFAST. 08/16/15 Irbesartan/Hydrochlorothiazide (Irbesartan-Hctz 300-12.5 Mg Tb) 1 Each Tablet 1 Tab Oral Daily 08/16/15 Isosorbide Mononitrate 30 Mg Tab.sr.24h 30 Mg Oral Twice A Day Metformin Hcl 500 Mg Tablet 500 Mg Oral Twice Daily With Meals Take one tablet, by mouth, 2 times a day with Meals. 09/23/15 Metoprolol Tartrate 25 Mg Tablet 25 Mg Oral Twice A Day 05/10/09 Nitroglycerin (Nitrolingual) 12 Gm [place] 2 Sprays Transling As Needed 05/10/09 [place]-3 Fatty Acids/Fish Oil (Fish Oil 1,000 Mg Capsule) 1 Each Capsule 1,000 Mg Oral Twice A Day 08/16/15 Tramadol Hcl 50 Mg Tablet 50-100 Mg Oral Q6h/0300,0900,1500,2100 09/23/15 Vit C/[place] Ac/Lut/Copper/Znox (Preservision Lutein Softgel) 1 [...] Onset Date Status Hx Substance Use No 09/23/2015 6:06pm Not Applicable Not Applicable Hx Alcohol Use Y 1 EVERY FEW MONTHS 09/23/2015 6:06pm Not Applicable Not Applicable Has the pt used tobacco in the last 12 months No 08/24/2015 3:21pm Not Applicable Not Applicable Tobacco Usage none 08/25/2015 1:23pm Not Applicable Not Applicable Query Response Start Date Stop Date Smoking Status Former smoker Hospital Discharge Instructions No hospital discharge instructions. Plan of Care Discharge Date 09/23/15 6:44pm Disposition 01 DISCHARGED HOME, SELF-CARE Condition at Discharge Stable Instructions/Education Provided Help for Hip Pain Prescriptions See Medication Section Referrals Lolita CROWDER MD Address: [address] [place] [id number] Additional Instructions/Education Please use the Tramadol and/or the Percocet as needed for pain. I do encourage you to use the walker at home for assistance with walking while the pain is causing you pain with weight bearing. If this is not improving however then please follow up with your surgeon or primary care provider for reevaluation. Care Plan and Goals Physician Care Plan Problem:Left Hip Pain Goal: Follow up with primary care provider Instructions: Take medications and follow care plan as discussed/written Functional Status No functional status results. Allergies, Adverse Reactions, Alerts Allergen Type Severity [...] 09/09/12 3:11pm Influenza Vaccine Hx Nov 2014 09/23/15 6:06pm Tdap Vaccine Hx NO SKIN DISRUPTIONS 09/23/15 5:27pm Vital Signs Acute Vital Signs Vital Response Date/Time Temperature (Fahrenheit) 97.3 deg F (96.8 - 99.1) 09/23/2015 5:27pm Temperature (Calculated Celsius) 36.08553 degrees C (36.0 - 37.3) 09/23/2015 5:27pm Temperature Source Temporal 08/21/2015 3:10pm Pulse Rate (adult) 68 bpm (60 - 100) 09/23/2015 6:44pm Respiratory Rate 18 breaths/min (10 - 20) 09/23/2015 6:44pm O2 Sat by Pulse Oximetry 94 % (90 - 100) 09/23/2015 6:44pm Oxygen Delivery Method Room Air 08/28/2015 8:54pm Oxygen Delivery Method Room Air 08/29/2015 8:00am Oxygen Flow Rate 2.00 L/min 08/28/2015 6:32am Blood Pressure 133/66 mm Hg 09/23/2015 6:44pm Blood Pressure Source Automatic Cuff 08/29/2015 6:36am Height (Feet) 5 feet 09/23/2015 5:27pm Height (Inches) 8.50 inches 09/23/2015 5:27pm Weight (Kilograms) 106.200 kg 09/23/2015 5:27pm Body Mass Index (BMI) 35.0 09/23/2015 5:27pm Results Laboratory Results Test Name Result Units [...] 08/23/2015 10:18am < 6.0 NON-DIABETIC RANGE 6.1-7.9 [facility] TARGET RANGE >8.0 ACTION SUGGESTED [...] Corpuscular Hemoglobin Concent 31.2 GM/DL 31-37 08/25/2015 4:4908/25/2015 5:08am RDW Standard Deviation 46.0 FL 36.9-50.2 08/25/2015 4:49am 08/25/2015 5 :08am Platelet Count 274 T/MM3 130-400 08/25/2015 4:49am 08/25/2015 5:08am Mean Platelet Volume 10.2 UM3 9.4-12.4 08/25/2015 4:49am 08/25/2015 5: 08am Neutrophils (%) (Auto) 63.5 % 33-66 08/25/2015 4:4908/25/2015 5: 08am Lymphocytes (%) (Auto) 18.4 % L 23-45 08/25/2015 4:4908/25/2015 5: 08am Monocytes (%) (Auto) 13.4 % H 0-9.0 08/25/2015 4:49am 08/25/2015 5:08am Eosinophils (%) (Auto) 4.1 % H 0-4 08/25/2015 4:4908/25/2015 5:08am Basophils (%) (Auto) 0.2 % 0-2 08/25/2015 4:4908/25/2015 5:08am Immature Granulocyte % (Auto) 0.4 % 0.0-0.5 08/25/2015 4:492015 5:08am Absolute Neutrophils (auto) 5.2 T/MM3 1.8-7.7 08/25/2015 4:492015 5:08am Absolute Lymphocytes (auto) 1.5 T/MM3 1-4.8 08/25/2015 4:492015 5:08am Absolute Monocytes (auto) 1.1 T/MM3 H 0-0.8 08/25/2015 4:49am 2015 5:08am Absolute Eosinophils (auto) 0.3 T/MM3 0-0.5 [...] Date Provider(s) TOTAL HIP ARTHROPLASTY Completed 08/21/15 NADINE GRANT MD, REX L PA REPLACE L HIP JT W CERAMIC ON POLY, UNCEMENT, OPEN Completed 08/21/15 NADINE GRANT MD GAIT TRAINING THERAPY Completed 08/24/15 USMAN CALLAHAN MD PT EVALUATION Completed 08/24/15 USMAN CALLAHAN MD THERAPEUTIC EXERCISES Completed 08/24/15 USMAN CALLAHAN MD OT EVALUATION Completed 08/24/15 USMAN CALLAHAN MD GAIT TRAINING/AMBULAT TREATMENT USING ASSIST EQUIPMENT Completed 08/24/15 USMAN CALLAHAN MD THERAPEUTIC EXERCISE TREATMENT OF MUSCULOSK WHOLE Completed 08/24/15 USMAN CALLAHAN MD HOME MANAGEMENT TREATMENT Completed 08/24/15 USMAN CALLAHAN MD Encounters Encounter Location Arrival/Admit Date Discharge/Depart Date Attending Provider Departed Emergency Room [facility] 09/23/15 5:24pm 09/23/15 6: 44pm HARPAL BOX MD Discharged Inpatient [facility] 08/24/15 2:25pm 08/29/15 3:35pm USMAN CALLAHAN MD Discharged Inpatient [facility] 08/21/15 5:46am 08/24/15 2:19pm NADINE GRANT MD Discharged Recurring [facility] 07/31/15 3:16pm 09/17/15 11:59pm Lolita CROWDER MD Recent Diagnosis
--- OUTSIDE RECORDS SUMMARY | 2016-08-16 18:39 | XMS REPORT | Continuity of Care Document ---
Author Author [facility] Organization [facility] Address Unknown Phone Unavailable Support Name Relationship Address Phone Lolita BOLDEN MD Caregiver [address] [address] Unavailable USMAN CALLAHAN MD Caregiver [address] [place] [address] Unavailable USMAN CALLAHAN MD Caregiver [address] [place] [address] Unavailable DELICIA EUBANKS Next Of Kin [address] [place] [address] Insurance Providers Guarantor Guy Sesay Address [address] [place] [address] Email DENIED/NO TO PT PORTAL Payer Medicare Policy Number [id number] Subscriber's Name Guy Sesay Relationship 18 Self Effective Date 00 Payer [facility] Policy Number [id number] Subscriber's Name Guy Sesay Relationship 18 Self Group Number [id number] Advance Directives Directive Response Recorded Date/Time Ordered [...] Acute Status post hip hemiarthroplasty Unknown Acute Medications [...] A Day 05/10/09 Nitroglycerin (Nitrolingual) 12 Gm [place] 2 Sprays Transling As Needed 05/10/09 [place]-3 Fatty Acids/Fish Oil (Fish Oil 1,000 Mg [...] 09/06/15 at 10:00 am for Hosp. follow-up. [facility] [address] [place], [place] . Dr. Lay Rodas on 09/12/15 at 2:00 pm for follow-up. [address] [place] . OT/PT on 09/04/15 at 8:20 am. Advanced Physical Theraphy [facility] [facility] [address] [place] [phone]. Pending Lab / Results: No Pending Lab [...] 2014 08/24/15 3:21pm Hx Pneumococcal Vaccination Y 08/24/15 3:21pm Hx Influenza Vaccination Y NOVEMBER 2014 08/24/15 3:21pm Hx Tetanus Diptheria N 1 YEAR AGO 09/09/12 3:11pm Influenza Vaccine Hx Nov 2014 08/24/15 3:24pm Vital Signs Acute Vital Signs Vital Response Date/Time Temperature (Fahrenheit) 97.6 deg F (96.8 - 99.1) 08/29/2015 6:36am Temperature (Calculated Celsius) 36.16227 degrees C (36.0 - 37.3) 08/29/2015 6:36am [...] 08/23/2015 10:18am < 6.0 NON-DIABETIC RANGE 6.1-7.9 [facility] TARGET RANGE >8.0 ACTION SUGGESTED [...] 99 mg/dL 75-110 08/29/2015 1:52pm 08/29/2015 2:50pm Name: GUY SESAY Unit #: [id number] : 1935 [id number] SUMMARY Admit Date: 08/24/15 Report #: [id number] [facility] General Date Date DATE: 08/29/15 TIME: 21:[address] Usman Callahan MD Admitting Physician Dr. Usman Callahan MD Consulting Physician MD Dr. Lolita Blackburn MD Dr. Tara Richardson, MD Admitting Diagnosis Metabolic encephalopathy s/p Left total hip arthroplasty Dementia Diabetes Mellitus Type 2 (NIDDM) COPD KARLEY obesity HTN CAD GERD Depression Post-operative anemia secondary to blood loss Discharge Diagnosis Metabolic encephalopathy s/p Left total hip arthroplasty Dementia Diabetes Mellitus Type 2 (NIDDM) COPD KARLEY obesity HTN CAD GERD Depression Post-operative anemia secondary to blood loss Laboratory Hemoglobin 9.7 Laboratory Tests Test 08/29/15 06:15 08/29/15 10:10 08/29/15 13:52 Glucometer 88mg/dL 203mg/dL 99mg/dL History of Present Illness Mr Sesay is an 80 year old gentleman who underwent an elective left total hip arthroplasty by Dr. Rodas on 08-21-15 at [facility]. Typically patient has some underlying mild dementia as per his , however it has never been formally diagnosed. At home prior to this hospitalization, patient typically does not know the date or day of the week. He has been driving prior to this hospitalization. Mr. Sesay has been suffering from increased confusion/delirium following this recent surgery. has been staying with him at night following surgery, which seems to promote calmness. She did not stay last evening. Patient reportedly suffered some agitation requiring PRN agents. Medically, patient has a strong history of coronary artery disease with prior bypass grafting and multiple stents. Cardiology care is done at [facility]. Past history of COPD and sleep apnea with pulmonary cares done by Dr Coreas in [place]. He wears o2 at 2 liters at night due to intolerance to cpap mask. Patient does not routinely use nebulized treatments at home. Approximately one month ago, patient was diagnosed with Type 2 diabetes when he went for preop clearance with Dr Bolden. Surgery was rescheduled at that time. Patient was started on Amaryl and Glucophage which have been restarted postoperatively. Hospital Course Patient was admitted to IRU s/p elective left total hip arthroplasty. He had metabolic encephalopathy and severe agitation that had to be controlled with Haldol IM. This confusion gradually lessened while in IRU, but baseline dementia was apparent with prolonged history of symptoms (per .) He did have several episodes of confusion at night during his stay. Psychiatry did evaluate patient and recommended scheduled Haldol while in the hospital. Prozac was discontinued because of interference with pain medication. Patient did very well with rehab while here, although it was challenging for him to remember hip precautions. Prior to discharge, patient was medically stable. While here he was started on metformin 1000 mg po BID, but states that his home dose was 500 mg po BID and that Dr. Bolden specifically wanted it at this level. I did change it back to 500 mg po BID for discharge, after conversation with Mrs. Sesay, but he did not have any hypoglycemia while admitted and did occasionally require 1-2 units of sliding scale novolog. states patient has tolerated prozac fine for years without complication and while he was on beta-rod. Per her request, I did restart this medication prior to discharge as well as patient was no longer receiving narcotic medication. I discussed haldol use with patient and prior to discharge. feels he will be back to his baseline once home, but did want a prescription for Haldol in case this was needed. It was written for prn only. Because patient is on plavix and asa as outpatient, ortho did not recommend 30 days of lovenox post-operatively so this is how patient was treated upon admission to IRU. Several days prior to his discharge, a [facility] hospitalist changed this order and recommended lovenox for 30 days. I did discuss this thoroughly with Dr. Rodas and lovenox is not indicated since patient does not have history of DVT/PE or cancer. Patient's did not want him to go home on lovenox for several reasons. Dr. Rodas did see patient and prior to discharge and he made a decision that continuing plavix and aspirin is adequate for discharge so these changes w ere made for discharge medication list. There was great concern for patient's inability to follow hip precautions while he was here (due to dementia.) We did recommend SNU to have greater supervision with ambulation and better assistance at night time, but refused this placement. We then recommended home health, but also refused this service. She was willing to take patient to outpatient PT/OT, so order for this was written. I did share this concern with Dr. Rodas due to risk of dislocation or fracture, but was adamant about discharge plans for outpatient PT/OT only. On day of discharge, patient had normal physical exam and bandage was still in place over left hip incision. I did discuss discharge medications and hip precautions again with patient and his at discharge and all questions were answered. They will f/u as outpatient with Dr. Rodas and Dr. Bolden. A formal screen for dementia would be recommended. Dr. Bolden will consider any needed changes to Prozac or metformin. Diabetic education was set-up, as well, for outpatient ( given new diagnosis of DM.) Would recommend f/u hemoglobin to monitor anemia. states they have a few percocet at home, but I recommended to not take this since he was given rx for tramadol and haldol prn. Patient and his were extremely pleasant throughout this stay and I thank Dr. Bolden for allowing us to participate in their care. Problems: (1) Physical debility Status: Acute (2) Delirium due to multiple etiologies Status: Acute (3) DMII (diabetes mellitus, type 2) Status: Chronic (4) Emphysema/COPD Status: Chronic (5) Dementia Status: Chronic (6) KARLEY (obstructive sleep apnea) Status: Chronic (7) Obesity (BMI 30-39.9) Status: Chronic (8) Hypertension Status: Chronic (9) GERD (gastroesophageal reflux disease) Status: Chronic (10) Degenerative arthritis of hip Status: Chronic (11) Depression Status: Chronic (12) CAD (coronary artery disease) Status: Chronic (13) S/P total hip arthroplasty Status: Acute Code Status Full Code Home Meds Active Scripts Tramadol HCl (Ultram) 50 Mg Tablet, 50-100 MG PO Q6H Y for PAIN, #60 TAB 0 Refills Prov:USMAN CALLAHAN MD 08/29/15 Haloperidol (Haloperidol) 0.5 Mg Tablet, 0.5 MG PO TID Y for AGITATION for 30 Days, #90 TAB 0 Refills Prov:USMAN CALLAHAN MD 08/29/15 Acetaminophen (Tylenol) 325 Mg Tablet, 650 MG PO QID Y for PAIN MDD 8 tablets for 15 Days, #120 TAB Prov:USMAN CALLAHAN MD 08/29/15 Metformin HCl (Metformin HCl) 500 Mg Tablet, 1 TAB PO BID for 30 Days, #60 0 Refills Prov:USMAN CALLAHAN MD 08/29/15 Polyethylene Glycol 3350 (Healthylax) 17 Gm Powd.pack, 17 GM PO DAILY, #30 PACKET Prov:MARTIN FOURNIER 08/22/15 Reported Medications Glimepiride (Glimepiride) 2 Mg Tablet, 1 TAB PO WB, TAB BEST TAKEN WITH BREAKFAST. 08/16/15 Vit C/[place] AC/Lut/Copper/Znox (Preservision Lutein Softgel) 1 Each Capsule, 1 CAP PO BID 08/16/15 [place]-3 Fatty Acids/Fish Oil (Fish Oil 1,000 mg Capsule) 1 Each Capsule, 1000 MG PO BID, CAP 08/16/15 Irbesartan/Hydrochlorothiazide (Irbesartan-Hctz 300-12.5 mg Tb) 1 Each Tablet, 1 TAB PO DAILY 08/16/15 Fenofibric Acid (Choline) (Trilipix) 135 Mg Capsule.dr, 135 MG PO HS 05/07/12 Famotidine (Pepcid Ac) 20 Mg Tablet, 20 MG PO DAILY 08/11/10 Fluoxetine (Prozac) 20 Mg Capsule, 20 MG PO DAILY 08/11/10 Clopidogrel Bisulfate (Plavix) 75 Mg Tablet, 75 MG PO DAILY 08/11/10 Aspirin (Aspirin) 325 Mg Tablet, 325 MG PO DAILY 08/11/10 Nitroglycerin (Nitrolingual) 12 Gm [place], 2 SPRAYS TL PRN, 0 Refills 05/10/09 Garlic (Garlic) 1,000 Mg Capsule, 1000 MG PO HS, 0 Refills 05/10/09 Amlodipine (Norvasc) 10 Mg Tablet, 10 MG PO HS, 0 Refills 05/10/09 Metoprolol Tartrate (Metoprolol Tartrate) 25 Mg Tablet, 1 TAB PO BID, 0 Refills 05/10/09 Isosorbide Mononitrate (Isosorbide Mononitrate) 30 Mg Tab.sr.24h, 30 MG PO BID, 0 Refills 05/10/09 Discontinued Reported Medications Enoxaparin Sodium (Enoxaparin Sodium) 100 Mg/1 Ml Syringe, 1 DOSE SQ DAILY, #3 08/20/15 Oxycodone HCl/Acetaminophen (Oxycodone-Acetaminophen 10-325) 1 Each Tablet, 1 TAB PO Q8H Y for PAIN 08/16/15 Acetaminophen (Tylenol) 325 Mg Tablet, 0 PO PRN, 0 Refills 05/10/09 Discharge Disposition home with Copies To 1: Lolita BOLDEN MD Documentation Requirements Documenting Diagnosis Anemia, BMI Low or High, Confusion, Diabetes Anemia Anemia Etiology: Postoperative Anemia Acuity: Unable to Determine Alt. Mental Status/Confusion Check if condition above is: Acute Comments acute on chronic BMI Low or High Assoc. dx for low or high BMI: Severe Obesity 35-39.9 Diabetes Diabetes Type: Type 2 Diabetes Is Diabetes Contolled?: Contolled Related to Diabetes: Not related to USMAN CALLAHAN MD August 29, 2015 21:29 Procedures Procedure Status Date Provider(s) TOTAL HIP ARTHROPLASTY Completed 08/21/15 NADINE RODAS MD, REX L PR REPLACE L HIP JT W CERAMIC ON POLY, UNCEMENT, OPEN Completed 08/21/15 NADINE RODAS MD GAIT TRAINING THERAPY Completed 08/24/15 USMAN [...] Date Discharge/Depart Date Attending Provider Discharged Inpatient [facility] 08/24/15 2:25pm 08/29/15 3:35pm USMAN CALLAHAN MD Discharged Inpatient [facility] 08/21/15 5:46am 08/24/15 2:19pm NADINE RODAS MD Discharged Recurring [facility] 07/31/15 3:16pm 09/17/15 11:59pm Lolita BOLDEN MD
--- OUTSIDE RECORDS SUMMARY | 2016-08-16 18:39 | XMS REPORT | Referral Summary ---
Author Author [facility] Organization [facility] Address Unknown Phone Unavailable Care Team Providers Care Certified Nurses Aide Name Role Phone No PCP, States Primary Care Physician [phone] Encounter VC Date(s): 08/29/14 - 08/29/14 [facility] [address] [place] [address] SUKUMAR Mohr [address] Discharge Diagnosis: BPH Discharge Disposition: [...] 1path intramuscular mature lipoma 2vascular surgeon in [place] 3Dr. Juan C Social History Social History Type Response Smoking Status Former smoker Assessment and Plan Extracted from: Title: Ambulatory Patient Education Author: Jose Muller JR, MD Date : 08/29/14 Follow Up With: Where: When: Pt States No PCP [address] [place] [address] Business (1) Within 3 to 5 days Comments: Follow Up With: Where: When: Jose Muller [address] [place] [address] Drive; [place] [address] Business (1) In 1 year [...] counseling. Ordered: Office Visit Level 3 Est 03508 Prostate Specific Antigen
--- OUTSIDE RECORDS SUMMARY | 2016-08-16 18:41 | XMS REPORT | Continuity of Care Document ---
Author Author [facility] Organization [facility] Address Unknown Phone Unavailable Allergies Active [...] Status Pt. Type Provider Facility Loc./Unit Complaint [id number] 09/25/2015 13:13:00 2015 23:59:00 DIS Outpatient Jose Muller [facility] 1 year recheck
[2016-08-16] MEDS ORDERED: ASPIRIN 81 MG CHEWABLE TABLET PO ONE (18:45)
[2016-08-16] MEDS ORDERED: NITROGLYCERIN 0.4 MG SUBLINGUAL TABLET SL PRN ×3 (18:45→20:30)
[2016-08-16 18:59] LABS: BASOPHILS % (AUTO) 0.3 % (0-2); EOSINOPHILS # (AUTO) 0.3 T/MM3 (0-0.5); EOSINOPHILS % (AUTO) 3.4 % (0-4); HCT - HEMATOCRIT 39.9 % (41-53); HGB - HEMOGLOBIN 12.5 GM/DL (13.5-17.5); IMMATURE GRANULOCYTE # (AUTO) 0.03 T/MM3 (0.00-0.03); IMMATURE GRANULOCYTE % (AUTO) 0.4 % (0.0-0.5); LYMPHOCYTES # (AUTO) 2.1 T/MM3 (1-4.8); LYMPHOCYTES % (AUTO) 28.1 % (23-45); MEAN CORPUSCULAR HGB CONC(MCHC 31.3 GM/DL (31-37); MEAN CORPUSCULAR VOLUME 89.3 UM3 (80-100); MEAN PLATELET VOLUME 10.6 UM3 (9.4-12.4); MONOCYTES # (AUTO) 0.6 T/MM3 (0-0.8); MONOCYTES % (AUTO) 8.3 % (0-9.0); NEUTROPHILS #(AUTO)-ABSOLUTE 4.4 T/MM3 (1.8-7.7); NEUTROPHILS % (AUTO) 59.5 % (33-66); RED BLOOD COUNT 4.47 M/MM3 (4.50-5.90); WBC - WHITE BLOOD COUNT 7.3 T/MM3 (4.5-11.0)
--- NOTE | 2016-08-16 19:05 | NUR ---
STATUS PT REPORTS THE NITRO TAB TOOK THE FULLNESS FEELING AWAY STATES HE JUST FEELS A LITTLE "SOMETHING" NOW, RATES PAIN 1-2 NITRO PASTE APPLIED AFTER EXPLAINING MED TO PT
[2016-08-16 19:06] LABS: INR 1.08 (0.76-1.04); PROTHROMBIN TIME 11.8 SEC (9.31-12.49)
[2016-08-16 19:08] LABS: ALBUMIN 4.5 G/DL (3.5-5.0); ALBUMIN/GLOBULIN RATIO 1.7 RATIO (1.1-2.2); ALKALINE PHOSPHATASE 77 U/L (38-126); ALT (SGPT) 47 U/L (21-72); ANION GAP 15 MEQ/L (5-15); AST (SGOT) 31 U/L (17-59); BUN/CREATININE RATIO 27 RATIO (6-26); CALCIUM 9.2 MG/DL (8.4-10.2); CHLORIDE 99 MEQ/L (98-107); CO2 - CARBON DIOXIDE 26 MEQ/L (22-30); CREATININE 0.9 MG/DL (0.8-1.5); GLOMERULAR FILTRATION RATE 81; GLUCOSE 150 MG/DL (75-110); POTASSIUM 4.4 MEQ/L (3.6-5); SODIUM 140 MEQ/L (134-144); TOTAL PROTEIN 7.1 G/DL (6.3-8.2)
[2016-08-16] MEDS ORDERED: NITROGLYCERIN 2% OINTMENT 1 G PACKET TOP ONE (19:15)
[2016-08-16 19:19] LABS: PROBNP 203 PG/ML (0-175)
--- NOTE | 2016-08-16 19:55 | NUR ---
DR IRBY IN ROOM WITH PT
--- NOTE | 2016-08-16 20:08 | ERPDOC ---
Departure Disposition Decision Date: August 16, 2016 Disposition Decision Time: 20:18 Disposition: 02 TO [facility] Impression Impression Impression: Primary Impression: Chest pain Chest pain type: other chest pain Qualified Codes: R07.89 - Other chest pain Severity: Severe Condition: Improved Seen By: Physician only Referrals: Lolita BOLDEN MD (Family) Problems/Meds/Labs Reviewed?: Yes Medications reviewed and manag: Yes Follow up care ordered?: Yes Mental Status: Alert, Oriented Critical Care Note Total Time (mins): 45 HPI - Chest Pain General Chief Complaint: Chest Pain Stated Complaint: POSS STROKE Time Seen by Provider: 18:37 Source: patient, family Exam Limitations: dementia HPI - Chest Pain Initial Comments Patient and his were eating at a local hamburger place tonight, and on the ride home patient began feeling ill with severe substernal chest tightness and a burning sensation radiating both to the left and right side of chest. With this patient had tingling and numbness down both arms right greater than left, and he states that these are the exact symptoms he had several times in the past with heart attacks. A shunt took 2 of his own nitroglycerin sprays in route, and had reduction of his symptoms by approximately 50%. Patient does have a long history of coronary disease with MS, multiple stents, and CABG. Patient does not remember the last time. 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 Carl out of [place] with the [employer], and his primary physician is Dr. Bolden in [place] Aspirin Treatment Today: 325 mg x 1 Allergies: Coded Allergies: Tetanus Vaccines and Toxoid (Verified Allergy, Unknown, 08/16/16) cephalexin (Verified Allergy, Unknown, 08/16/16) ciprofloxacin (Verified Allergy, Unknown, 08/16/16) esomeprazole (Verified Allergy, Unknown, 08/16/16) PER H&P 07/11/15 iodine (Verified Allergy, Unknown, 08/16/16) Past History Patient Surgical History Right total hip replacement09/2010 Heart [id number] Bilateral carpal tunnel release. Upper rib removal CABG with stent placement07/2009 Right inguinal hernia repair 2 TURP Carotid endarterectomy (left) Heart catheter with single stent05/2013 Past Medical History Metabolic: diabetes, hypercholesterolemia, hypertension ENMT: sleep apnea Cardiac: CAD, MS, angina Respiratory: COPD GI: GERD, ulcers Musculoskeletal: osteoarthritis Hematologic: anemia Psychological: dementia, depression Family History Family PMH: FOUND: CAD, CVA, cancer Vaccines Hx Influenza Vaccination: Yes (NOVEMBER 2014) Hx Pneumococcal Vaccination: Yes (2011?) Hx Tetanus Diptheria: No (1 YEAR AGO) Social History Does patient use chewing tobac: No # of Packs/Tins per Day: 2 # of Years: 30 Sexuality: female partner Review of Systems Constitutional Constitutional: DENIES: appetite decrease, appetite increase, chills, dizziness , fever, weakness ENMT Ears: DENIES: pain Hearing: DENIES: hearing loss, tinnitus Balance: DENIES: vertigo Mouth/Throat: DENIES: change in swallowing, change in voice, hoarsness, painful swallowing, sore throat Cardiovascular Cardiac: chest pain, DENIES: dyspnea on exertion Rhythm/Rate: DENIES: irregular beat, palpitations, tachycardia Vascular: DENIES: pedal edema Pulmonary Respiratory: DENIES: cough, dyspnea, pleuritic chest pain GI Upper Abdomen: DENIES: dysphagia, heartburn/indigestion, nausea, pain, vomiting Lower Abdomen: DENIES: blood in stool, constipation, diarrhea, pain General: DENIES: burning, dysuria, frequency, pain, urgency Musculoskeletal General: DENIES: cramps, joint pain, joint swelling, pain, weakness Integumentary Skin: DENIES: rash, sores Neurological General: DENIES: headache, numbness, tingling, vertigo, weakness Psychiatric Psychiatric: DENIES: anxiety, depression, nervousness Physical Exam General General Nourishment: well nourished, well developed, appears stated age, no acute distress General Body Habitus: well groomed Vitals and Pain First Documented Vital Signs Date Time Temp Pulse Resp B/P Pulse Ox O2 Delivery O2 Flow Rate FiO2 08/16/16 18:36 98.3 69 20 163/77 95 Room Air Weight: Kilograms: 111.300 Height (feet): 5 Height (inches): 8.00 Triage Pain Scale: RN VS reviewed by Provider: Yes Normal Exams: Head: Normocephalic w/o trauma Eyes: Pupils are PERRLA w/ EOMI, No scleral icterus, irritation, or foreign bodies noted ENMT: No facial trauma, nasal exudates, pharyngeal erythema, or exudates are noted Neck: Full range of motion, without adenopathy, JVD, bruits or thyromegaly Chest/Resp: Clear all batres, with good airflow, and symmetry bilaterally CV: Regular rate and rhythm, without murmur or gallop, Pulses 2+ all extremities, capillary refill, <2 seconds all ext., no pedal edema noted Abdomen: Bowel sounds positive, soft, non-tender, non-distended, no hepatosplenomegaly, masses or bruits noted Lymphatic: No lymphadenopathy, or lymphedema noted Musculoskeletal: No tenderness, or deformity noted, good range of motion, all extremities Integumentary: No rashes, hives, or bruising noted, hair and nails, without abnormality Neurologic: Patient is alert, and oriented, cranial nerves, motor/sensory/ cerebellar, exams w/o gross deficits, to observation Psychiatric: Patient exhibits, appropriate attention, emotion and affect Progress Results/Orders Orders Procedure Category Date Status Time Cbc W/Auto LAB 08/16/16 Complete Diff-Reflex Manual 18:40 Cmp - Comprehensive LAB 08/16/16 Complete Metabolic 18:40 Probnp LAB 08/16/16 Complete 18:40 Troponin I W LAB 08/16/16 Complete Hemolysis Index 18:40 INR LAB 08/16/16 Complete 18:40 EKG EKG 08/16/16 Logged 18:40 Chest 1 View RAD 08/16/16 Taken 18:40 Iv Lock (Ed Only) EDM 08/16/16 Transmitted 18:40 Aspirin (Asa) PHA 08/16/16 Complete 18:45 Nitroglycerin PHA 08/16/16 In Process (Nitrostat) 18:45 Lipase LAB 08/16/16 Complete Nitroglycerin PHA 08/16/16 Complete Ointment (Nitro-Bid) 19:15 Lab Results Laboratory Tests Test 08/16/16 18:43 08/16/16 18:54 Glucometer 150mg/dL White Blood Count 7.3T/MM3 Red Blood Count 4.47M/MM3 Hemoglobin 12.5GM/DL Hematocrit 39.9% Mean Corpuscular Volume 89.3UM3 Mean Corpuscular Hemoglobin 28.0UUG Mean Corpuscular Hemoglobin Concent 31.3GM/DL RDW Standard Deviation 46.6FL Platelet Count 254T/MM3 Mean Platelet Volume 10.6UM3 Immature Granulocyte % (Auto) 0.4% Neutrophils (%) (Auto) 59.5% Lymphocytes (%) (Auto) 28.1% Monocytes (%) (Auto) 8.3% Eosinophils (%) (Auto) 3.4% Basophils (%) (Auto) 0.3% Absolute Immature Granulocyte (auto 0.03T/MM3 Absolute Neutrophils (auto) 4.4T/MM3 Absolute Lymphocytes (auto) 2.1T/MM3 Absolute Monocytes (auto) 0.6T/MM3 Absolute Eosinophils (auto) 0.3T/MM3 Absolute Basophils (auto) 0.0T/MM3 Prothromb Time International Ratio 1.08 Turbidity 25 Sodium Level 140MEQ/L Potassium Level 4.4MEQ/L Chloride Level 99MEQ/L Carbon Dioxide Level 26MEQ/L Anion Gap 15MEQ/L Blood Urea Nitrogen 24.0MG/DL Creatinine 0.9MG/DL Glomerular Filtration Rate Calc 81 BUN/Creatinine Ratio 27RATIO Glucose Level 150MG/DL Calculated Osmolality 276MOSM/KG Calcium Level 9.2MG/DL Total Bilirubin 0.50MG/DL Icterus Index < 2 Aspartate Amino Transf (AST/SGOT) 31U/L Alanine Aminotransferase (ALT/SGPT) 47U/L Alkaline Phosphatase 77U/L Troponin I < 0.012ng/ml CG-Nsp-Y-Type Natriuretic Peptide 203PG/ML Total Protein 7.1G/DL Albumin 4.5G/DL Globulin 2.6G/DL Albumin/Globulin Ratio 1.7RATIO Lipase 186U/L Chemistry Specimen Hemolysis 20 Medications Current ED Medications Aspirin (ASA) 324 mg O ONCE PO ; Start 08/16/16 at 18:45; Stop 08/16/16 at 18: 46; Status DC Nitroglycerin (Nitrostat) 0.4 mg Q5MIN PRN SL CHEST PAIN Last administered on 18:50; Start 08/16/16 at 18:45 Nitroglycerin (Nitro-Bid) 1 inch O ONCE TOP Last administered on 08/16/16 19: 05; Start 08/16/16 at 19:15; Stop 08/16/16 at 19:16; Status DC Progress Progress Patient given additional nitroglycerin sublingually with 1 inch paste placed on the chest to complete relief and no recurrence of chest pain Initial EKG shows normal sinus rhythm without ischemia, ectopy, or infarction CBC, CMP essentially normal. Troponin normal ProBNP minimally elevated Case discussed with Dr. Wong - engraving supervisor in [place] with [facility] - he feels the patient does not warrant transfer, and according to the patient's desire he may be watched here in the [facility] for chest pain rule out, or if the patient feels comfortable he may go home and follow-up next week with Dr. Wong Discussed the case with the patient and his , all present, including myself , feel that the patient would be better served with cardiac rule out, and is admitted to Dr. Freitas the hospitalist service. JOCELYNE IRBY MD August 16, 2016 20:08
--- NOTE | 2016-08-16 20:25 | NUR ---
ADMIT ROOM 141 ASSIGNED BY NILSA PANCHAL WITH DANIEL RN
[2016-08-16] MEDS ORDERED: MILK OF MAGNESIA 30 ML SUSP PO PRN (20:30)
[2016-08-16] MEDS ORDERED: ONDANSETRON 4mg/2ml INJECTION IV PRN (20:30)
[2016-08-16] MEDS ORDERED: PROMETHAZINE 25 MG INJECTION IV PRN (20:30)
[2016-08-16] MEDS ORDERED: ACETAMINOPHEN 325 MG TABLET PO PRN (20:30)
[2016-08-16] MEDS ORDERED: METOCLOPRAMIDE 10mg/2ml INJECTION IV PRN (20:30)
[2016-08-16] MEDS ORDERED: MORPHINE SULFATE 2 MG SYRINGE IV PRN (20:30)
[2016-08-16] MEDS ORDERED: MAG-AL + SIM LIQUID 30 ML UDC PO PRN (20:30)
[2016-08-16] MEDS ORDERED: SORE THROAT SPRAY 20ml PO PRN (20:30)
[2016-08-16] MEDS ORDERED: MORPHINE SULFATE 10 MG SYRINGE IV PRN (20:30)
[2016-08-16] MEDS ORDERED: BISACODYL 10 MG SUPPOSITORY RECTALLY PRN (20:30)
[2016-08-16] MEDS ORDERED: ZOLPIDEM 5 MG TABLET PO PRN (20:30)
--- NOTE | 2016-08-16 20:38 | NUR ---
REPORT REPORT GIVEN TO JULY RN
--- OUTSIDE RECORDS SUMMARY | 2016-08-16 20:44 | XMS REPORT | Continuity of Care Document ---
Author Author [facility] Organization [facility] Address Unknown Phone Unavailable Allergies Active Description [...] Status Pt. Type Provider Facility Loc./Unit Complaint [id number] 09/25/2015 13:13:00 2015 23:59:00 DIS Outpatient Jose Muller [facility] 1 year recheck
--- NOTE | 2016-08-16 20:48 | HPPDOC ---
HPI - Adult Date DATE: 08/16/16 TIME: 20:43 General Chief Complaint: chest pain History of Present Illness very pleasant 81-year-old mild to moderately demented male presents to the emergency room after acute onset of chest pain following eating a hamburger at [employer] [facility]. His Accompanies him and provides additional history. This chest pain occurred around 6 PM. He did not feel well, described the pain to the emergency room as a pressure and a hot poker although after I asked him a couple times to describe pain, he could not. He took some nitroglycerin himself, and the pain improved by about 50%. He received additional nitroglycerin and nitro paste in the emergency room and the pain resolved. He describes right arm and right leg paresthesias, but no facial involvement. The emergency room told me that he told him that he also had some left hand involvement. I've asked Mr Sesay a couple of times if this felt like angina/ previous heart attack pain but no explicit answer He denies recent significant illness denies fever chills nausea or vomiting. He denies any black or bloody stools. He's been compliant with his medications. He recently had an echocardiogram in June, his is not sure of the details. The emergency room spoke with Dr. Bacon who is his semiautomatic taper operator at [facility] in [place]. . he thought that the patient was probably having anxiety and per the emergency room didn't think he needed to be admitted. However with his significant past medical history (CABG and multiple multiple stents) felt should be admitted for observation ER reported to me that the EKG was not ischemic appearing though I cannot find EKG in the chart. Past Medical History Past Medical History Type II diabetes (newly diagnosed 07/2015) Hypertension Coronary artery disease s/p CABG and multiple stents Chronic back pain Dyslipidemia Dementia COPD Sleep apnea OA GERD Surgical History Patient's Surgical History: with the findings and the police. 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 Upper rib removal CABG with stent placement07/2009 Right inguinal hernia repair 2 TURP Carotid endarterectomy (left) Heart catheter with single stent05/2013 Current Medications Home Meds Reported Medications Tramadol HCl (Tramadol HCl) 50 Mg Tablet, 50-100 MG PO Q6HR Y for PAIN 09/23/15 Metformin HCl (Metformin HCl) 500 Mg Tablet, 500 MG PO BIDWM 09/23/15 Acetaminophen (Acetaminophen) 650 Mg Tablet.er, 650 MG PO PRN Y for PAIN 09/23/15 Glimepiride (Glimepiride) 2 Mg Tablet, 2 MG PO WB 08/16/15 Vit C/Maynor AC/Lut/Copper/Znox (Preservision Lutein Softgel) 1 Each Capsule, 1 CAP PO BID 08/16/15 Marathon-3 Fatty Acids/Fish Oil (Fish Oil 1,000 mg Capsule) 1 Each Capsule, 1000 MG PO BID, CAP 08/16/15 Irbesartan/Hydrochlorothiazide (Irbesartan-Hctz 300-12.5 mg Tb) 1 Each Tablet, 1 TAB PO DAILY 08/16/15 Fenofibric Acid (Choline) (Trilipix) 135 Mg Capsule.dr, 135 MG PO HS 05/07/12 Famotidine (Pepcid Ac) 20 Mg Tablet, 20 MG PO DAILY 08/11/10 Fluoxetine (Prozac) 20 Mg Capsule, 20 MG PO DAILY 08/11/10 Clopidogrel Bisulfate (Plavix) 75 Mg Tablet, 75 MG PO DAILY 08/11/10 Aspirin (Aspirin) 325 Mg Tablet, 325 MG PO DAILY 08/11/10 Nitroglycerin (Nitrolingual) 12 Gm [place], 2 SPRAYS TL PRN 05/10/09 Garlic (Garlic) 1,000 Mg Capsule, 1000 MG PO HS 05/10/09 Amlodipine (Norvasc) 10 Mg Tablet, 10 MG PO HS 05/10/09 Metoprolol Tartrate (Metoprolol Tartrate) 25 Mg Tablet, 25 MG PO BID 05/10/09 Isosorbide Mononitrate (Isosorbide Mononitrate) 30 Mg Tab.sr.24h, 30 MG PO BID 05/10/09 Allergies: Coded Allergies: Tetanus Vaccines and Toxoid (Verified Allergy, Unknown, 08/16/16) cephalexin (Verified Allergy, Unknown, 08/16/16) ciprofloxacin (Verified Allergy, Unknown, 08/16/16) esomeprazole (Verified Allergy, Unknown, 08/16/16) PER H&P 07/11/15 iodine (Verified Allergy, Unknown, 08/16/16) Family History Family History: Father with coronary artery disease, lung cancer Motherpancreatitis BrotherCVA Social History Smoking Status: Former smoker Does patient use chewing tobac: No # of Packs/Tins per Day: 2 # of Years: 30 Quit Date: August 16, 2016 Marital Status: Sexuality: female partner Household Members: spouse Prior Occupation: [employer] Review of Systems Unable to Obtain ROS Due to: dementia All Other Systems All Other Systems: Reviewed (remainder of 10-point ROS Neg.) Physical Exam General General Nourishment: apparent age Vital Signs Vital Signs Date Time Temp Pulse Resp B/P Pulse Ox O2 Delivery O2 Flow Rate FiO2 08/16/16 20:03 68 22 95 Room Air 08/16/16 19:45 141/61 08/16/16 18:36 98.3 Height (Feet): 5 Height (Inches): 8.00 Eyes Brief: FOUND: PERRL Cardiovascular (brief) Cardiac Brief: FOUND: murmur (1/6 LIONEL at base. ), regular rate, regular rhythm , NOT FOUND: pedal edema Abdomen (brief) Abdominal Brief: FOUND: BS normo active x4, soft, NOT FOUND: distended, tender Neurologic (brief) Neurological Brief: FOUND: cranial 2-12 intact, motor, sensory Neurologic RN Documented GCS Eye Opening: Verbal: Motor: Total: Psychiatric (brief) FOUND: alert Comments oriented to person. poor recall of recent / remote events Laboratory Laboratory Tests Test 08/16/16 18:43 08/16/16 18:54 Glucometer 150mg/dL White Blood Count 7.3T/MM3 Red Blood Count 4.47M/MM3 Hemoglobin 12.5GM/DL Hematocrit 39.9% Mean Corpuscular Volume 89.3UM3 Mean Corpuscular Hemoglobin 28.0UUG Mean Corpuscular Hemoglobin Concent 31.3GM/DL RDW Standard Deviation 46.6FL Platelet Count 254T/MM3 Mean Platelet Volume 10.6UM3 Immature Granulocyte % (Auto) 0.4% Neutrophils (%) (Auto) 59.5% Lymphocytes (%) (Auto) 28.1% Monocytes (%) (Auto) 8.3% Eosinophils (%) (Auto) 3.4% Basophils (%) (Auto) 0.3% Absolute Immature Granulocyte (auto 0.03T/MM3 Absolute Neutrophils (auto) 4.4T/MM3 Absolute Lymphocytes (auto) 2.1T/MM3 Absolute Monocytes (auto) 0.6T/MM3 Absolute Eosinophils (auto) 0.3T/MM3 Absolute Basophils (auto) 0.0T/MM3 Prothromb Time International Ratio 1.08 Turbidity 25 Sodium Level 140MEQ/L Potassium Level 4.4MEQ/L Chloride Level 99MEQ/L Carbon Dioxide Level 26MEQ/L Anion Gap 15MEQ/L Blood Urea Nitrogen 24.0MG/DL Creatinine 0.9MG/DL Glomerular Filtration Rate Calc 81 BUN/Creatinine Ratio 27RATIO Glucose Level 150MG/DL Calculated Osmolality 276MOSM/KG Calcium Level 9.2MG/DL Total Bilirubin 0.50MG/DL Icterus Index < 2 Aspartate Amino Transf (AST/SGOT) 31U/L Alanine Aminotransferase (ALT/SGPT) 47U/L Alkaline Phosphatase 77U/L Troponin I < 0.012ng/ml GN-Lzu-I-Type Natriuretic Peptide 203PG/ML Total Protein 7.1G/DL Albumin 4.5G/DL Globulin 2.6G/DL Albumin/Globulin Ratio 1.7RATIO Lipase 186U/L Chemistry Specimen Hemolysis 20 Radiology CXR by my interp - cardiomegaly. perhaps some cephalization of vessels. Assessment & Plan Problems: (1) Chest pain Status: Acute Qualifiers: Chest pain type: other chest pain Qualified Codes: R07.89 - Other chest pain Assessment & Plan: the description of his pain certainly concerning for angina but could have been GERD/heartburn. Pain came on however after eating a hamburger, it was relieved with nitroglycerin. So far his EKG and cardiac enzymes are reassuring. Emergency room provider spoke with the patient's semiautomatic taper operator, who recommended conservative observation. We will admit to the hospital, rule out for myocardial infarction, on telemetry, continue home meds ASA plavix and statin, monitor VS with multiple doses NTG. Is only on fenofibrate as far as I can tell, needs statin if truly not taking and not intolerant (2) CAD (coronary artery disease) Status: Chronic Assessment & Plan: See chest pain discussion (3) Paresthesia of right arm and leg Status: Acute Assessment & Plan: seemed to correspond to chest pain. Perhaps if was hyperventilating could have been cause of bilateral hand tingling. Pt tells me was oNLY right arm leg. Further workup for TIA etc may be entertained. (4) DMII (diabetes mellitus, type 2) Status: Chronic Assessment & Plan: correctional dose insulin tonight, resume home meds in AM (5) GERD (gastroesophageal reflux disease) Status: Chronic (6) Hypertension Status: Chronic (7) KARLEY (obstructive sleep apnea) Status: Chronic Assessment & Plan: uses 2 L O2 at night, was unable to tolerate CPAP in past (8) Dementia Status: Chronic (9) Emphysema/COPD Status: Chronic Code Status Full Code Hospital Course Summary Disclaimer The hospital course summary below is not to be considered part of the above Progress Note. SHIRLEY PEREZ MD August 16, 2016 20:46
--- NOTE | 2016-08-16 20:55 | NUR ---
PT ADMITTED TO ROOM 141, BROUGHT VIA CART, BUT AMBULATED FORM HALLWAY TO BED. VSS. AT BEDSIDE.
[2016-08-16 21:00] VITALS: BP 161/73; PULSE 69; RESP 22; TEMP 97.3; O2SAT 94
[2016-08-16 21:02] VITALS: Ht 174 cm; Wt 111.0 kg
[2016-08-16] MEDS ORDERED: ALBUTEROL/IPRATROPIUM INHAL. 2.5mg-0.5mg/3ml Neb. AEROSOL PRN (21:15)
[2016-08-16] MEDS ORDERED: DEXTROSE 50% SYRINGE 50ml (Eq. 1 AMP) IV PRN (21:15)
[2016-08-16] MEDS ORDERED: GLUCOSE ORAL GEL 40% 37.5 G TUBE PO PRN (21:15)
[2016-08-16] MEDS ORDERED: INSULIN ASPART 100 UNIT/ML SQ PRN (21:15)
[2016-08-16] MEDS ORDERED: TRAMADOL 50 MG TABLET PO PRN (22:45)
[2016-08-17 03:30] VITALS: BP 162/76
--- NOTE | 2016-08-17 04:05 | NUR ---
SUMMARY PT IS ALERT WITH CONFUSION, CONTINUALLY REPEATS SELF, AT TIMES IS NONSENSICAL. PT IS UP WITH MINIMAL ASSIST, AMBULATORY TO THE RESTROOM. GOOD OUTPUT. PT WAS CONTINUOUSLY GETTING OUT OF BED, SO WAS MOVED CLOSER TO NURSE STATION FOR SAFETY. SBP ELEVATED AT 177, TELEMED CONTACTED AND GAVE ORDER FOR HYDRALAZINE 10MG Q6H PRN FOR BP ABOVE 160/90.
[2016-08-17] MEDS ORDERED: ISOSORBIDE MONONITRATE ER 30 MG TABLET PO SCH (07:30)
[2016-08-17 08:00] VITALS: BP 135/63; PULSE 71; PULSE 72; RESP 19; TEMP 96.6; O2SAT 98
[2016-08-17] MEDS ORDERED: METFORMIN 500 MG TABLET PO SCH (08:00)
[2016-08-17] MEDS ORDERED: GLIMEPIRIDE 2 MG TABLET PO SCH (08:00)
[2016-08-17] MEDS ORDERED: ENOXAPARIN 40 MG/0.4 ML INJECTION SQ SCH (09:00)
[2016-08-17] MEDS ORDERED: IRBESARTAN 300 MG TABLET PO SCH (09:00)
[2016-08-17] MEDS ORDERED: HYDROCHLOROTHIAZIDE 12.5 MG CAPSULE PO SCH (09:00)
[2016-08-17] MEDS ORDERED: OMEGA-3 ACID ESTERS 1 G CAPSULE PO SCH (09:00)
[2016-08-17] MEDS ORDERED: FAMOTIDINE 20 MG TABLET PO SCH (09:00)
[2016-08-17] MEDS ORDERED: MULTIVIT + MINERALS (OPTI-GEN) PO SCH (09:00)
[2016-08-17] MEDS ORDERED: FLUOXETINE 20 MG CAPSULE PO SCH (09:00)
[2016-08-17] MEDS ORDERED: ASPIRIN 325 MG TABLET PO SCH (09:00)
[2016-08-17] MEDS ORDERED: CLOPIDOGREL 75 MG TABLET PO SCH (09:00)
--- NOTE | 2016-08-17 09:40 | DI ---
Indication: ITS.REASON: chest pain PROCEDURE: CHEST 1 VIEW: Encounter: Initial Comparison: May 07, 2012 Findings: Lungs are mildly hypoinflated. No focal consolidative pneumonia, gross pleural effusion or pneumothorax. Heart size and pulmonary vascularity are within normal limits. Mild prominence of the right hilar contour are thought to be due to overlapping pulmonary vessels. Prior CABG. Impression: No focal pneumonia or congestive failure. .
[2016-08-17] MEDS ORDERED: TRAM50TA4 PO (10:54)
--- NOTE | 2016-08-17 11:43 | DSPDOC ---
General Date Date DATE: 08/17/16 TIME: 11:30 Attending Physician An Love MD Admitting Physician An Love MD Consulting Physician Admitting Diagnosis chest pain Discharge Diagnosis Chest pain, resolved Shoulder and neck pain, likely MSK and reproducible on exam DMII CAD Dementia Laboratory Laboratory Tests Test 08/16/16 18:43 08/16/16 18:54 08/17/16 00:44 08/17/16 05:55 Glucometer 150mg/dL (75-110) 118mg/dL (75-110) White Blood Count 7.3T/MM3 (4.5-11.0) Red Blood Count 4.47M/MM3 (4.50-5.90) Hemoglobin 12.5GM/DL (13.5-17.5) Hematocrit 39.9% (41-53) Mean Corpuscular Volume 89.3UM3 (80-100) Mean Corpuscular Hemoglobin 28.0UUG (26-34) Mean Corpuscular Hemoglobin Concent 31.3GM/DL (31-37) RDW Standard Deviation 46.6FL (36.9-50.2) Platelet Count 254T/MM3 (130-400) Mean Platelet Volume 10.6UM3 (9.4-12.4) Immature Granulocyte % (Auto) 0.4% (0.0-0.5) Neutrophils (%) (Auto) 59.5% (33-66) Lymphocytes (%) (Auto) 28.1% (23-45) Monocytes (%) (Auto) 8.3% (0-9.0) Eosinophils (%) (Auto) 3.4% (0-4) Basophils (%) (Auto) 0.3% (0-2) Absolute Immature Granulocyte (auto 0.03T/MM3 (0.00-0.03) Absolute Neutrophils (auto) 4.4T/MM3 (1.8-7.7) Absolute Lymphocytes (auto) 2.1T/MM3 (1-4.8) Absolute Monocytes (auto) 0.6T/MM3 (0-0.8) Absolute Eosinophils (auto) 0.3T/MM3 (0-0.5) Absolute Basophils (auto) 0.0T/MM3 (0-0.2) Prothromb Time International Ratio 1.08 (0.76-1.04) Turbidity 25 (0-20) Sodium Level 140MEQ/L (134-144) Potassium Level 4.4MEQ/L (3.6-5) Chloride Level 99MEQ/L (98-107) Carbon Dioxide Level 26MEQ/L (22-30) Anion Gap 15MEQ/L (5-15) Blood Urea Nitrogen 24.0MG/DL (9-20) Creatinine 0.9MG/DL (0.8-1.5) Glomerular Filtration Rate Calc 81 BUN/Creatinine Ratio 27RATIO (6-26) Glucose Level 150MG/DL (75-110) Calculated Osmolality 276MOSM/KG (261-280) Calcium Level 9.2MG/DL (8.4-10.2) Total Bilirubin 0.50MG/DL (0.20-1.30) Icterus Index < 2 (0-7) Aspartate Amino Transf (AST/SGOT) 31U/L (17-59) Alanine Aminotransferase (ALT/SGPT) 47U/L (21-72) Alkaline Phosphatase 77U/L (38-126) Troponin I < 0.012ng/ml (0-0.12) < 0.012ng/ml (0-0.12) JM-Mae-Z-Type Natriuretic Peptide 203PG/ML (0-175) Total Protein 7.1G/DL (6.3-8.2) Albumin 4.5G/DL (3.5-5.0) Globulin 2.6G/DL (2.4-3.6) Albumin/Globulin Ratio 1.7RATIO (1.1-2.2) Lipase 186U/L (23-300) Chemistry Specimen Hemolysis 20 (0-25) < 15 (0-25) Test 08/17/16 06:46 Hemoglobin A1c 6.3% (6.1-7.9) Troponin I < 0.012ng/ml (0-0.12) Chemistry Specimen Hemolysis < 15 (0-25) Microbiology No micro studies pending. Radiology DATE OF EXAM: 08/16/16 ORDERING DOCTOR: JOCELYNE IRBY MD TYPE OF EXAM: CHEST 1 VIEW REASON FOR EXAM: chest pain Indication: ITS.REASON: chest pain PROCEDURE: CHEST 1 VIEW: Encounter: Initial Comparison: May 07, 2012 Findings: Lungs are mildly hypoinflated. No focal consolidative pneumonia, gross pleural effusion or pneumothorax. Heart size and pulmonary vascularity are within normal limits. Mild prominence of the right hilar contour are thought to be due to overlapping pulmonary vessels. Prior CABG. Impression: No focal pneumonia or congestive failure. . History of Present Illness From H&P last night: "Very pleasant 81-year-old mild to moderately demented male presents to the emergency room after acute onset of chest pain following eating a hamburger at [employer] [facility]. His Accompanies him and provides additional history. This chest pain occurred around 6 PM. He did not feel well, described the pain to the emergency room as a pressure and a hot poker although after I asked him a couple times to describe pain, he could not. He took some nitroglycerin himself, and the pain improved by about 50%. He received additional nitroglycerin and nitro paste in the emergency room and the pain resolved. He describes right arm and right leg paresthesias, but no facial involvement. The emergency room told me that he told him that he also had some left hand involvement. I've asked Mr Sesay a couple of times if this felt like angina/ previous heart attack pain but no explicit answer He denies recent significant illness denies fever chills nausea or vomiting. He denies any black or bloody stools. He's been compliant with his medications. He recently had an echocardiogram in June, his is not sure of the details. The emergency room spoke with Dr. Bacon who is his retail general manager at [facility] in [place]. . he thought that the patient was probably having anxiety and per the emergency room didn't think he needed to be admitted. However with his significant past medical history (CABG and multiple multiple stents) felt should be admitted for observation ER reported to me that the EKG was not ischemic appearing though I cannot find EKG in the chart." Hospital Course Mr. Sesay was admitted yesterday evening as per HPI, pain improved after pain meds were given. He was able to rest overnight, EKG was reviewed and unremarkable. He had troponin assay drawn that was negative x3. This morning he has some slight pain between his shoulder bladers that is reproducible on exam but is otherwise feeling well and eating breakfast, ambulating. He would like to go home, is agreeable to follow up outpatient with his PCP and retail general manager and will continue tramadol for pain as per his home routine. I have prescribed tramadol #30 for additional pain treatment as needed until he sees his physician for follow-up. Problems: (1) Chest pain Status: Resolved Assessment & Plan: the description of his pain certainly concerning for angina but could have been GERD/heartburn. Pain came on however after eating a hamburger, it was relieved with nitroglycerin. So far his EKG and cardiac enzymes are reassuring. Emergency room provider spoke with the patient's retail general manager, who recommended conservative observation. We will admit to the hospital, rule out for myocardial infarction, on telemetry, continue home meds ASA plavix and statin, monitor VS with multiple doses NTG. Is only on fenofibrate as far as I can tell, needs statin if truly not taking and not intolerant (2) CAD (coronary artery disease) Status: Chronic Assessment & Plan: See chest pain discussion (3) Paresthesia of right arm and leg Status: Resolved Assessment & Plan: seemed to correspond to chest pain. Perhaps if was hyperventilating could have been cause of bilateral hand tingling. Pt tells me was oNLY right arm leg. Further workup for TIA etc may be entertained. (4) DMII (diabetes mellitus, type 2) Status: Chronic Assessment & Plan: correctional dose insulin tonight, resume home meds in AM (5) GERD (gastroesophageal reflux disease) Status: Chronic (6) Hypertension Status: Chronic (7) KARLEY (obstructive sleep apnea) Status: Chronic Assessment & Plan: uses 2 L O2 at night, was unable to tolerate CPAP in past (8) Dementia Status: Chronic (9) Emphysema/COPD Status: Chronic DVT Prophylaxis: Lovenox Code Status Full Code Home Meds Active Scripts Tramadol HCl (Tramadol HCl) 50 Mg Tablet, 50 MG PO Q6HR Y for PAIN for 14 Days, #30 TAB 0 Refills Prov:BERNICE HATHAWAY MD 08/17/16 Reported Medications Metformin HCl (Metformin HCl) 500 Mg Tablet, 500 MG PO BIDWM 09/23/15 Acetaminophen (Acetaminophen) 650 Mg Tablet.er, 650 MG PO PRN Y for PAIN 09/23/15 Glimepiride (Glimepiride) 2 Mg Tablet, 2 MG PO WB 08/16/15 Vit C/[place] AC/Lut/Copper/Znox (Preservision Lutein Softgel) 1 Each Capsule, 1 CAP PO BID 08/16/15 [place]-3 Fatty Acids/Fish Oil (Fish Oil 1,000 mg Capsule) 1 Each Capsule, 1000 MG PO BID, CAP 08/16/15 Irbesartan/Hydrochlorothiazide (Irbesartan-Hctz 300-12.5 mg Tb) 1 Each Tablet, 1 TAB PO DAILY 08/16/15 Fenofibric Acid (Choline) (Trilipix) 135 Mg Capsule.dr, 135 MG PO HS 05/07/12 Famotidine (Pepcid Ac) 20 Mg Tablet, 20 MG PO DAILY 08/11/10 Fluoxetine (Prozac) 20 Mg Capsule, 20 MG PO DAILY 08/11/10 Clopidogrel Bisulfate (Plavix) 75 Mg Tablet, 75 MG PO DAILY 08/11/10 Aspirin (Aspirin) 325 Mg Tablet, 325 MG PO DAILY 08/11/10 Nitroglycerin (Nitrolingual) 12 Gm [place], 2 SPRAYS TL PRN 05/10/09 Garlic (Garlic) 1,000 Mg Capsule, 1000 MG PO HS 05/10/09 Amlodipine (Norvasc) 10 Mg Tablet, 10 MG PO HS 05/10/09 Metoprolol Tartrate (Metoprolol Tartrate) 25 Mg Tablet, 25 MG PO BID 05/10/09 Isosorbide Mononitrate (Isosorbide Mononitrate) 30 Mg Tab.sr.24h, 30 MG PO BID 05/10/09 Face to Face Encounter I met with patient on the day of dismissal and discussed follow up appointments , medications, and safety plan. VSS as reviewed in [facility] awake and alert, NAD, conversant HEENT NCAT, MMM, anicteric sclerae CV regular, nontachy RESP clear bilaterally without rales, rhonchi, wheezing GI soft, NTTP/ND, obese EXT no significant edema, WWP, no rashes Discharge Disposition Discharging home in the care of his . Planned follow-up with PCP and retail general manager within the next 2 weeks. Copies To 1: Lolita CROWDER MD, AMANDA M MD August 17, 2016 11:34
--- NOTE | 2016-08-17 11:45 | NUR ---
SUMMARY/DISMISSAL PT WAS UP AT 0700 THIS MORNING, WAS HELPED TO ORDERED BREAKFAST AND ATE 100% OF HER MEAL. PT WAS MEDICATED. PT ALERT TO PERSON AND TIME WHICH IS NORMAL FOR PT DUE TO HR OF DEMENTIA. PT DENIED ANY CHEST PAIN. PTS CAME IN TO SEE HIM AROUND 1000. PT WAS GIVEN INSULIN ORDERED PER [facility] 2 HRS AFTER BREAKFAST. PT WAS HELPED TO CHANGE AND NITRO CREAM TO L SHOULDER WAS REMOVED. IV WAS ALSO DC'D. AND PT WERE GIVEN DISMISSAL INSTRUCTIONS, STATED UNDERSTANDING. PT WAS WHEELED TO CAR AT 1145.
[2016-08-17] MEDS ORDERED: AMLODIPINE 10 MG TABLET PO SCH (22:00)
[2016-08-17] MEDS ORDERED: GARLIC 1000 MG PO SCH (22:00)
[2016-08-17] MEDS ORDERED: FENOFIBRIC ACID 45 MG PO SCH (22:00)
--- NOTE | 2016-08-18 08:56 | NUR ---
DM screen Pt was in hospital when there was no RD coverage. RD will call to f/u on DM screen.
[2016-08-19 01:01] LABS: RISK FACTOR 7.1 RATIO (0-5.0)
== END 2016-08-17 11:45 | disposition home or self-care (01) ==
LOC: ED 18:33 → EDHOLD 20:19 → MED 20:55
PROVIDERS: ADMIT Pediatrics; ATTEND Internal Medicine
DX: R07.89 Other chest pain (principal); M54.2 Cervicalgia; M25.512 Pain in left shoulder; M25.511 Pain in right shoulder; E11.9 Type 2 diabetes mellitus without complications; I25.119 Atherosclerotic heart disease of native coronary artery with unspecified angina pectoris; F03.90 Unspecified dementia, unspecified severity, without behavioral disturbance, psychotic disturbance, mood disturbance, and anxiety; R20.2 Paresthesia of skin; R20.0 Anesthesia of skin; I25.2 Old myocardial infarction; Z95.1 Presence of aortocoronary bypass graft; Z95.5 Presence of coronary angioplasty implant and graft; E78.00 Pure hypercholesterolemia, unspecified; I10 Essential (primary) hypertension; G47.33 Obstructive sleep apnea (adult) (pediatric); J43.9 Emphysema, unspecified; K21.9 Gastro-esophageal reflux disease without esophagitis; F32.9 Major depressive disorder, single episode, unspecified; F17.210 Nicotine dependence, cigarettes, uncomplicated; G89.29 Other chronic pain; Z79.82 Long term (current) use of aspirin; Z79.899 Other long term (current) drug therapy
CPT/HCPCS: 36415; 71010; 80053; 80061; 82948; 83036; 83690; 83880; 84484; 85025; 85610; 93005; 96374; 99284; A9270; G0378; J0360; J1650; 99218